=== PATIENT | male | born 1945 | race Caucasian/White ===

== ENCOUNTER 2016-09-18 18:02 | Inpatient (IN) ==
[2016-09-18] MEDS ORDERED: NS FLUSH BAG 500ml IV PRN (18:57)
--- NOTE | 2016-09-18 19:06 | Emergency Department Report ---
General Adult HPI - General Chief complaint: Psychiatric Symptoms Stated complaint: Generations Eval Time Seen by Provider: 09/18/16 18:27 Source: family () Mode of arrival: ambulatory Limitations: altered mental status - History of Present Illness HPI narrative: Patient is brought to the emergency department by his for evaluation after onset of increased confusion and bizarre behavior the past couple of days. Patient resides with his at home. He was recently dx with a UTI earlier today by his PCP , Dr Nieves, and antibiotics were called into his pharmacy. Patient self caths due to hx of prostate cancer that has left him with the inability to fully empty his bladder and takes bactrim prophylactically. Patients reports that patients behavior has become very bizarre the past 24 -36 hours with such behavior as deciding to put them on a diet by taking much of the food in the house and putting it in the garbage disposal. Patient also made attempts to walk out of the house in the middle of the night last night. Although patient has baseline dementia/alzhiemers, these recent behaviors are much more extreme than his baseline. Patient has also not been sleeping at night. Patient has no nausea or vomiting or diarrhea. No fevers or chills. Will do medical screening on patient and treat accordingly. If no evidence of sepsis, will see if patient will benefit from a Generations screening. 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 Patient is confused with behavior changes, however has not demonstrated any aggressive behavior or behavior of self harm. MD complaint: increased confusion /bizarre behaviors Onset (ago): hour(s) Associated symptoms: confusion (worsening ) - Related Data Home Medications Medication Instructions Recorded Confirmed Acetaminophen 500 mg PO Q4H PRN #0 09/07/15 09/18/16 Amlodipine Besylate 7.5 mg PO DAILY #0 09/07/15 09/18/16 Ibuprofen [Advil] 200 mg PO Q4H PRN #0 09/07/15 09/18/16 Metoprolol Tartrate 25 mg PO BID #0 09/07/15 09/18/16 Silodosin [Rapaflo] 8 mg PO WS #0 09/07/15 09/18/16 Escitalopram [Lexapro] 10 mg PO HS 09/18/16 09/18/16 Lisinopril [Prinivil] 20 mg PO DAILY 09/18/16 09/18/16 Melatonin [Melatonin] 10 mg PO HS 09/18/16 09/18/16 Memantine HCl/Donepezil HCl 1 cap PO QAM 09/18/16 09/18/16 [Namzaric 28 mg-10 mg Capsule] Nitrofurantoin Monohyd/M-Cryst 100 mg PO BID 09/18/16 09/18/16 [Macrobid 100 mg Capsule] Sulfamethox/Tmp [Bactrim Ds] 1 tab PO WS 09/18/16 09/18/16 Allergies Allergy/AdvReac Type Severity Reaction Status Date / Time No Known Allergies Allergy Verified 09/18/16 19:23 Review of Systems Limitations: ROS unobtainable due to patient's medical condition Constitutional: Reports: chills PFSH Patient Stated Medical History Alzheimer's Disease Yes Dementia Yes Other Cardiology Yes: ANUERESYM X3 Hx Benign Prostatic Yes Hyperplasia - Social History Smoking status: Never smoker Housing: house Household members: spouse Physical Exam - Limitations Limitations: altered mental status - General General appearance: alert - Normal Exams: Head:: Normocephalic without trauma Eyes:: Pupils are PERRLA w/ EOMI, No scleral icterus, irritation, or foreign bodies noted Chest/Respirations:: Clear all jamil, with good airflow, and symmetry bilaterally Cardiovascular:: Regular rate and rhythm, Pulses 2+ all extremities, capillary refill, <2 seconds all extremities Abdomen:: Bowel sounds positive, soft, non-tender, non-distended, no hepatosplenomegaly, masses or bruits noted Lymphatic:: No lymphadenopathy, or lymphedema noted Musculoskeletal:: No tenderness, or deformity noted, good range of motion, all extremities Integumentary:: No rashes, hives, or bruising noted, hair and nails, without abnormality - Cardiovascular Cardiovascular exam: Present: systolic murmur Course Vital Signs Temperature 98.7 F 09/18/16 18:13 Pulse Rate 60 09/18/16 18:13 Respiratory Rate 20 09/18/16 18:13 Blood Pressure 161/76 H 09/18/16 18:13 Pulse Oximetry 95 09/18/16 18:13 Temperature 98.7 F 09/18/16 18:13 Pulse Rate 52 L 09/18/16 20:14 Respiratory Rate 18 08/09/17 20:14 Blood Pressure 141/72 H 09/18/16 20:14 Pulse Oximetry 98 09/18/16 20:14 Medical Decision Making - MDM Narrative Medical decision making narrative: Patient has increased confusion and behavior changes attributed to probable UTI ; also has slightly worsened hyponatremia. With these clinical findings, patient may benefit from observation on medical unit for IV antibiotics and rehydration prior to generation screening. Telehospitalist, Dr Mackay, accepts patient to the hospitalist service. - Differential Diagnosis sepsis, uti, electrolyte imbalance, CVA, encephalopathy, drug reaction - Lab Data Result diagrams: 09/18/16 18:17 09/18/16 19:24 Lab Results 09/18/16 09/18/16 09/18/16 Range/Units 18:17 18:54 19:24 WBC 7.0 (4.5-11.0) T/MM3 RBC 4.06 L (4.50-5.90) M/MM3 Hgb 13.1 L (13.5-17.5) GM/DL Hct 38.5 L (41-53) % MCV 94.8 (80-100) UM3 MCH 32.3 (26-34) UUG MCHC 34.0 (31-37) GM/DL RDW Std Deviation 44.2 (36.9-50.2) FL Plt Count 195 (130-400) T/MM3 MPV 9.4 (9.4-12.4) UM3 Immature Gran % (Auto) 0.3 (0.0-0.5) % Neut % (Auto) 79.0 H (33-66) % Lymph % (Auto) 11.6 L (23-45) % [place] % (Auto) 8.1 (0-9.0) % Eos % (Auto) 0.9 (0-4) % Baso % (Auto) 0.1 (0-2) % Neut # 5.6 (1.8-7.7) T/MM3 Lymph # 0.8 L (1-4.8) T/MM3 [place] # 0.6 (0-0.8) T/MM3 Eos # 0.1 (0-0.5) T/MM3 Baso # 0.0 (0-0.2) T/MM3 Abs Immat Gran (auto) 0.02 (0.00-0.03) T/MM3 Turbidity < 20 (0-20) Sodium 128 L (134-144) MEQ/L Potassium 4.7 (3.6-5) MEQ/L Chloride 95 L (98-107) MEQ/L Carbon Dioxide 24 (22-30) MEQ/L Anion Gap 9 (5-15) MEQ/L BUN 19.0 (9-20) MG/DL Creatinine 0.9 (0.8-1.5) MG/DL GFR Calculation 83 BUN/Creatinine Ratio 21 (6-26) RATIO Glucose 104 (75-110) MG/DL Calculated Osmolality 249 L (261-280) MOSM/KG Calcium 8.5 (8.4-10.2) MG/DL Total Bilirubin 0.90 (0.20-1.30) MG/DL Icterus Index < 2 (0-7) AST 62 H (17-59) U/L ALT 55 (21-72) U/L Alkaline Phosphatase 64 (38-126) U/L Total Protein 7.0 (6.3-8.2) G/DL Albumin 4.1 (3.5-5.0) G/DL Globulin 2.9 (2.4-3.6) G/DL Albumin/Globulin Ratio 1.4 (1.1-2.2) RATIO Plasma Lactate 0.9 (0.6-2.2) MMOL/L Specimen Hemolysis < 15 (0-25) Ur Collection Type Urine, catheter Urine Color Red (YELLOW) Urine Clarity Sl cloudy Urine pH 6.0 (5.0-8.0) Ur Specific [place] 1.015 (1.015-1.025) Urine Protein 2+ A (NEGATIVE) Urine Glucose (UA) Negative (NEGATIVE) Urine Ketones Negative (NEGATIVE) Urine Occult Blood 3+ A (NEGATIVE) Urine Nitrate Negative (NEGATIVE) Urine Bilirubin Negative (NEGATIVE) Urine Urobilinogen 0.2 (NORMAL) EU/DL Ur Leukocyte Esterase 3+ (NEGATIVE) Urine RBC 30-50 H (0-3) /HPF Urine WBC 50-200 H (0-5) /HPF Urine Bacteria 2+ H (NEGATIVE) Ur Culture Indicated? Cult reflexed &setup Disposition Clinical Impression: UTI (urinary tract infection), Hyponatremia, Dementia Disposition: 02 To OBS NM Prescriptions: No Action Metoprolol Tartrate 25 mg PO BID #0 Memantine HCl/Donepezil HCl [Namzaric 28 mg-10 mg Capsule] 1 cap PO QAM Nitrofurantoin Monohyd/M-Cryst [Macrobid 100 mg Capsule] 100 mg PO BID Lisinopril [Prinivil] 20 mg PO DAILY Melatonin [Melatonin] 10 mg PO HS Amlodipine Besylate 7.5 mg PO DAILY #0 Silodosin [Rapaflo] 8 mg PO WS #0 Acetaminophen 500 mg PO Q4H PRN #0 PRN Reason: PAIN Ibuprofen [Advil] 200 mg PO Q4H PRN #0 PRN Reason: PAIN Escitalopram [Lexapro] 10 mg PO HS Sulfamethox/Tmp [Bactrim Ds] 1 tab PO WS Referrals: Tono Nieves MD [Family Provider] - Time of Disposition: 20:31 - Seen By: tracy
[2016-09-18] MEDS ORDERED: SALINE FLUSH 10ml SYRINGE IVF PRN (19:10)
[2016-09-18] MEDS: SALINE FLUSH 10ml SYRINGE IVF PRN (19:27)
[2016-09-18] MEDS ORDERED: CEFTRIAXONE (ER USE ONLY) 1 GM in NS 100 ML IV ONE (19:33)
[2016-09-18] MEDS ORDERED: ACETAMINOPHEN 325 MG TABLET PO PRN (20:34)
[2016-09-18] MEDS ORDERED: Bisacodyl EC TAB 5 MG TABLET PO PRN (20:34)
[2016-09-18] MEDS ORDERED: ONDANSETRON 4 MG/2 ML INJECTION IVP PRN (20:34)
[2016-09-18] MEDS ORDERED: IBUPROFEN 200 MG TABLET PO PRN (20:55)
[2016-09-18] MEDS ORDERED: ACETAMINOPHEN 500 MG TABLET PO PRN (20:55)
[2016-09-18 21:04] VITALS: BMI 29.7
--- NOTE | 2016-09-18 21:35 | History & Physical Report ---
<Brock Mackay I - Last Filed: 09/18/16 21:31> History of Present Illness Date: 09/18/16 Chief complaint: Altered Mental Status HPI: Mr. Hernandez is a pleasant [id number] male patient of Dr. Rick. He has a baseline of Alzheimer's dementia, but is normally fairly high functioning. His is his primary caregiver, and brought him to the emergency department this evening with the complaint of increased confusion and strange behaviors. For example, he has had insomnia and tried to leave the house in the middle of the night last night. He apparently took a significant amount of the food in the house and placed it on the garbage disposal, stating that they were going to start a new diet. He had labs done with his primary care doctor today, was apparently diagnosed with a urinary tract infection, antibiotics were called out, but he has not received any of those yet as his behaviors were becoming more bizarre and concerning to his so she brought him to the emergency department. Here, he was discovered indeed to have a urinary tract infection. Since April , he has been doing intermittent self catheterization for urine retention felt due to BPH. This is his first UTI since beginning this regimen, but he did have a "serious" UTI last November as well. He was given 1 g of intravenous Rocephin in the emergency department, 500 mL of normal saline, and he is placed in observation status for further evaluation and management. The primary doctor and the patient's have requested a screen for the generations unit as well. Review of Systems - Constitutional Constitutional: Absent: chills, fatigue, fever(s) - EENMT Eyes: Absent: change in vision Ears: Absent: ear discharge Balance: Absent: vertigo - Cardiovascular Cardiovascular: Absent: chest pain, palpitations, syncope, dyspnea on exertion - Respiratory Respiratory: Absent: cough, dyspnea - Gastrointestinal Gastrointestinal: Present: change in bowel habits ( Over the last several months, he has had intermittent unannounced episodes of emesis. No blood, no apparent other evidence of illness when these occur. He has not vomited in about 1 week.). Absent: abdominal pain - Genitourinary Genitourinary: Present: as per HPI - Neurological Neurological: Present: as per HPI, confusion, memory loss ( Chronic with a mix of Alzheimer's and vascular type dementia) - Psychiatric Psychiatric: Present: as per HPI, abnormal sleep pattern, behavioral changes PFSH Patient Stated Medical History Alzheimer's Disease Yes Dementia Yes Other Cardiology Yes: AAA ANUERESYM Hx Benign Prostatic Yes Hyperplasia Other Yes: PROSTATE CA Shingles Yes chronic hyponatremia, mild recurrent urinary tract infections Family History: noncontributory - Social History Smoking status: Never smoker (he is a lifetime non-smoker.) Alcohol intake frequency: does not drink Housing: house Household members: spouse Current occupational status: unemployed Medications Home Medications Medication Instructions Recorded Confirmed Type Acetaminophen 500 mg PO Q4H PRN #0 09/07/15 09/18/16 History Amlodipine Besylate 7.5 mg PO DAILY #0 09/07/15 09/18/16 History Ibuprofen [Advil] 200 mg PO Q4H PRN #0 09/07/15 09/18/16 History Metoprolol Tartrate 25 mg PO BID #0 09/07/15 09/18/16 History Silodosin [Rapaflo] 8 mg PO WS #0 09/07/15 09/18/16 History Escitalopram [Lexapro] 10 mg PO HS 09/18/16 09/18/16 History Lisinopril [Prinivil] 20 mg PO DAILY 09/18/16 09/18/16 History Melatonin [Melatonin] 10 mg PO HS 09/18/16 09/18/16 History Memantine HCl/Donepezil HCl 1 cap PO QAM 09/18/16 09/18/16 History [Namzaric 28 mg-10 mg Capsule] Nitrofurantoin Monohyd/M-Cryst 100 mg PO BID 09/18/16 09/18/16 History [Macrobid 100 mg Capsule] Sulfamethox/Tmp [Bactrim Ds] 1 tab PO WS 09/18/16 09/18/16 History Allergies Allergy/AdvReac Type Severity Reaction Status Date / Time No Known Allergies Allergy Verified 09/18/16 19:23 Exam Vital Signs: Temperature 96.8 F 09/18/16 20:58 Pulse Rate 56 L 09/18/16 20:58 Respiratory Rate 20 09/18/16 20:58 Blood Pressure 174/79 H 09/18/16 20:58 Pulse Oximetry 97 09/18/16 20:58 Oxygen Delivery Method Room Air Height: 5 ft 6 in Weight: 83.4 kg Body Mass Index: 29.7 - Constitutional Present: no acute distress Comments: Pleasant not oriented his does all the talking - Routine HEENT Exam Head: Present: normocephalic, atraumatic Eye: Present: EOMI, PERRL - Routine Neck Exam Present: supple, full ROM - Routine Chest/Breast/Axilla Exam Chest wall: Absent: tenderness - Routine Respiratory Exam Present: CTA bilaterally. Absent: accessory muscle use, dyspnea - Routine Cardiovascular Exam Present: RRR, no murmur - Routine Abdominal Exam Present: soft, normoactive bowel sounds, non tender, distended ( minimally). Absent: tenderness - Routine Extremities Exam Absent: cyanosis, clubbing, edema - Routine Neurological Exam Present: alert, CN II-XII intact, moving all extremities. Absent: oriented X3 - Routine Psychiatric Exam Present: normal affect ( calm, flat affect follows simple commands) - Additional findings Additional findings: physical examination performed using telemedicine equipment with the assistance of the bedside nurse. The patient's was present throughout the history and examination. Results - Labs CBC & Chem 7: 09/18/16 18:17 09/18/16 19:24 Assessment and Plan (1) UTI (urinary tract infection) Problem details: Complicated by his history of self straight catheterization for benign prostatic hypertrophy. He has been given empiric intravenous Rocephin, which we will continue and follow his urine culture. He does not appear septic at this time. Current visit: Yes Status: Acute (2) Hyponatremia Problem details: This is chronic, and very little departure from his baseline. He had stopped hydrochlorothiazide in the past, apparently. We will continue normal saline at 100 mils per hour and recheck in the morning. Current visit: Yes Status: Acute (3) Dementia Problem details: Toxic encephalopathy on top of chronic dementia due to the above urinary tract infection. He is not agitated at this time. We will maximize his environmental cues as possible. Treat the underlying infection. A consult has been placed to the generations unit for elucidation of the most appropriate disposition. Current visit: Yes Status: Acute 09/18/16 21:43 Will provide further symptomatic supportive and diagnostic cares as the current workup, or changes in his clinical scenario indicated. Plan of care was discussed with his at the bedside at the time of my evaluation and she expressed understanding and desired to proceed. We will respect their desire for him to remain DO NOT RESUSCITATE status. DVT Prophylaxis: SCD's Sepsis Assessment - Evaluation Confirmed Suspected Infection: Yes SIRS Criteria: acute mental status change Severe Sepsis: none seen Hospital Course Summary Disclaimer: The visit summary below is not to be considered part of the above Progress Note. <SparksTamy peace - Last Filed: 09/19/16 12:07> History of Present Illness Date: 09/19/16 [facility] Patient Stated Medical History Alzheimer's Disease Yes Dementia Yes Other Cardiology Yes: AAA ANUERESYM Hx Benign Prostatic Yes Hyperplasia Other Yes: PROSTATE CA Shingles Yes Exam Vital Signs: Temperature 97.0 F 09/19/16 07:35 Pulse Rate 56 L 09/19/16 07:35 Respiratory Rate 18 09/19/16 07:35 Blood Pressure 159/85 H 09/19/16 07:35 Pulse Oximetry 97 09/19/16 07:35 Oxygen Delivery Method Room Air Height: 1.68 m Weight: 81.9 kg Results - Labs CBC & Chem 7: 09/19/16 04:53 09/19/16 04:53 Assessment and Plan (1) UTI (urinary tract infection) Problem details: Complicated by his history of self straight catheterization for benign prostatic hypertrophy. He has been given empiric intravenous Rocephin, which we will continue and follow his urine culture. He does not appear septic at this time. Current visit: Yes Status: Acute (2) Hyponatremia Problem details: This is chronic, and very little departure from his baseline. He had stopped hydrochlorothiazide in the past, apparently. We will continue normal saline at 100 mils per hour and recheck in the morning. Current visit: Yes Status: Acute (3) Dementia Problem details: Toxic encephalopathy on top of chronic dementia due to the above urinary tract infection. He is not agitated at this time. We will maximize his environmental cues as possible. Treat the underlying infection. A consult has been placed to the generations unit for elucidation of the most appropriate disposition. Current visit: Yes Status: Acute Assessment and Plan: 09/19/2016-Dr. Sparks I have reviewed the H&P above dictated by tele-medicine physician Dr. Brock Mackay. I agree with dictation above. Please see my additions below. Chief complaint is altered mental status History of present illness: History is obtained mostly from the patient's . The patient has per her report 2 kinds of dementia both Alzheimer's type dementia and vascular dementia. She states that he was in his usual state of health until last night when he started having bizarre behaviors and seemed much more confused. She states that this was typical for him with urinary tract infections. He was seen by his primary care physician yesterday and found to have UTI and plan was for initiation of antibiotics, but he was too confused to start them and was taken to the emergency room instead. In the ER he was found to have 50-200 white cells on urinalysis with 2+ bacteria. He was started on Rocephin and Macrodantin. He has a history of urinary retention and sees Dr. Fisher urologist via [place]. He has been straight cathetering himself 4 times a day since April of this year because of urinary retention. He was also on Bactrim DS once a day since April to prevent UTI. On admission the patient also had hyponatremia and was started on normal saline. Today, the patient's states that he is less confused than yesterday but is not back to his baseline. He denies any headache, chest pain or abdominal pain. He denies any pain anywhere. He denies feeling short of breath or having nausea. He ate a good breakfast. He was able to answer some of my questions about symptoms but invariably would look at his after I asked him a question. He has had intermittent vomiting at home of uncertain cause. Reportedly he would have sudden onset of vomiting up to once a day but sometimes less than once a week. Before and after these episodes he would feel fine and did not have any specific complaints per his . Otherwise he has been in his normal state of health. Per his , he has not had any falls and has normal gait. He does not require a walker for ambulation. 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 He follows with a doctor in [place] regarding his aneurysms and they are watching them with CAT scan every 4-6 months. The patient also has an enlarged heart and a regurgitant valve per his . 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 He does not have a diagnosis of heart failure and is not on diuretics. He also has BPH, chronic hyponatremia, and frequent urinary tract infections. He also has urinary retention requiring straight catheter 4 times a day. His urologist had recommended chronic indwelling Jean but the patient and his prefer straight catheter 4 times a day and when necessary. Family history is significant for multiple family members on his mother's side including his mother having dementia No known drug allergies Medications are reviewed. He was not taking Macrobid at home. Social history: The patient is a lifelong nonsmoker and nondrinker. 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 No focal neurologic deficits on exam. HEENT reveals sclerae to be anicteric and pupils are equal round and reactive. Oropharynx is moist. Neck is supple. Chest is clear to auscultation. Cardiovascular reveals a regular rate and rhythm. Abdomen is soft and nontender. Extremities are free of edema. Skin is warm and dry and without rashes. Lab this morning shows sodium is 1:30 up from 128 yesterday. The remainder of the basic metabolic profile is essentially normal. White count is 4.7 down from 7. Hemoglobin and platelets are normal. Neutrophils are 71%. Urine culture is pending. Impression Encephalopathy, likely secondary to urinary tract infection and hyponatremia Urinary tract infection-culture is pending Hyponatremia-improving Alzheimer's type dementia and vascular dementia-with acute encephalopathy as above Urinary retention secondary to BPH-requiring scheduled straight catheterization Aneurysms of the aortic arch and abdominal aorta Plan Continue Rocephin and Macrobid. Discontinue Bactrim. Await urine culture. Discussed with urologist when culture is back. Will change status to inpatient due to continued encephalopathy which is likely multifocal factorial with urinary tract infection and hyponatremia. Hopefully, acute confusion will resolve with treatment of UTI and hyponatremia. DC IV fluids when current bag is empty. Recheck basic metabolic profile tomorrow. Continue usual home medications for treatment of hypertension Walk-in halls 3 times a day with assist to prevent weakness. Hospital Course Summary Disclaimer: The visit summary below is not to be considered part of the above Progress Note.
[2016-09-18] MEDS: NS 1,000 ML IV SCH (21:50)
[2016-09-18] MEDS: CEFTRIAXONE 1 G in NS 100 ML IV SCH (21:59)
[2016-09-18] MEDS ORDERED: MELATONIN 5 MG TABLET PO SCH (22:00)
[2016-09-18] MEDS ORDERED: FALL RISK - PHARMACY CONSULT MC PRN (22:03)
[2016-09-18] MEDS: ESCITALOPRAM 10 MG TABLET PO SCH (22:45)
[2016-09-18] MEDS: NITROFURANTOIN (MACROBID) 100 MG CAPSULE PO SCH (22:45)
[2016-09-19] MEDS: NS 1,000 ML IV SCH (07:12)
--- NOTE | 2016-09-19 09:17 | CT Scan Report ---
Indication: INCREASED CONFUSION PROCEDURE: CT head/brain wo con: Encounter: Initial Comparison: None Findings: There is mild prominence of the ventricles and sulci compatible with cortical atrophy. There are fairly extensive periventricular and subcortical white matter changes most prominent in the basal ganglia in the anterior limb of the internal capsule bilaterally. There is no mass, mass effect, or midline shift. No evidence for intracranial hemorrhage. No intra or extra-axial fluid collections. No evidence for depressed skull fracture. The included portions of the sinuses are clear. IMPRESSION: Mild cortical atrophy with periventricular white matter disease. No evidence for acute cortical infarct, intracranial hemorrhage, or mass. Preliminary report was provided by Asher harry .
[2016-09-19] MEDS: POM METOPROLOL TARTRATE 25mg TABLET PO SCH ×2 (09:21→17:28)
[2016-09-19] MEDS: NAMZARIC PO SCH (09:22)
[2016-09-19] MEDS: LISINOPRIL 20 MG TABLET PO SCH (09:23)
[2016-09-19] MEDS: NITROFURANTOIN (MACROBID) 100 MG CAPSULE PO SCH ×2 (09:24→21:01)
[2016-09-19] MEDS: AMLODIPINE 5 MG TABLET PO SCH (09:24)
[2016-09-19] MEDS: RAPAFLO 8 MG PO SCH (17:29)
[2016-09-19] MEDS: ESCITALOPRAM 10 MG TABLET PO SCH (21:01)
[2016-09-19] MEDS: MELATONIN 10 MG PO SCH (21:02)
[2016-09-19] MEDS: CEFTRIAXONE 1 G in NS 100 ML IV SCH (23:01)
[2016-09-20] MEDS: NAMZARIC PO SCH (10:12)
[2016-09-20] MEDS: POM METOPROLOL TARTRATE 25mg TABLET PO SCH ×2 (10:12→17:01)
[2016-09-20] MEDS: NITROFURANTOIN (MACROBID) 100 MG CAPSULE PO SCH ×2 (10:12→20:46)
[2016-09-20] MEDS: LISINOPRIL 20 MG TABLET PO SCH (10:13)
[2016-09-20] MEDS: AMLODIPINE 5 MG TABLET PO SCH (10:13)
[2016-09-20] MEDS: NS 1,000 ML IV SCH (10:52)
[2016-09-20] MEDS: SALINE FLUSH 10ml SYRINGE IVF PRN (16:10)
[2016-09-20] MEDS: RAPAFLO 8 MG PO SCH (17:01)
--- NOTE | 2016-09-20 18:18 | Progress Note ---
Subjective: The patient was seen today accompanied by his . The patient has significant dementia with acute encephalopathy as the reason for his admission. His states that he is not back to baseline as far as his confusion is concerned. Otherwise, she states he appears to be doing well. He is eating and drinking very well. He is up and walking in the halls multiple times a day with assistance. He denies any pain anywhere. He appears to be voiding well. Anytime he is asked a question he attempts to answer but also looks at his to help confirm his answer. The patient did complain of muscle spasms and cramps in his legs last night. He and his think the SCDs made it worse. Objective Vital signs: Temperature 97.0 F 09/20/16 15:42 Pulse Rate 61 09/20/16 15:42 Respiratory Rate 16 09/20/16 15:42 Blood Pressure 143/71 H 09/20/16 15:42 Pulse Oximetry 96 09/20/16 15:42 Oxygen Delivery Method Room Air Weight: 83.1 kg Comments: GEN-alert, pleasantly confused, no acute distress HEENT-were anicteric, pupils are equal, oropharynx is moist NECK-supple CV-regular rate and rhythm CHEST-clear to auscultation bilaterally ABD-soft, nontender, nondistended with positive bowel sounds -no Jean EXT-no edema NEURO-no focal deficits SKIN-warm and dry and without rashes Results - Labs CBC & Chem 7: 09/19/16 04:53 09/20/16 04:25 Labs: Urine culture from [facility] outpatient clinic revealed enterococcus faecalis sensitive to all antibiotics tested including nitrofurantoin which was started on the evening of admission Urine culture here at [facility] preliminarily shows greater than 100 ,000 colony-forming units of gram-positive cocci. The medical librarian stated it was an enterococcus species but further testing was pending Assessment and Plan (1) UTI (urinary tract infection) Problem details: Complicated by his history of self straight catheterization for benign prostatic hypertrophy. He has been given empiric intravenous Rocephin, which we will continue and follow his urine culture. He does not appear septic at this time. Current visit: Yes Status: Acute (2) Hyponatremia Problem details: This is chronic, and very little departure from his baseline. He had stopped hydrochlorothiazide in the past, apparently. We will continue normal saline at 100 mils per hour and recheck in the morning. Current visit: Yes Status: Acute (3) Dementia Problem details: Toxic encephalopathy on top of chronic dementia due to the above urinary tract infection. He is not agitated at this time. We will maximize his environmental cues as possible. Treat the underlying infection. A consult has been placed to the generations unit for elucidation of the most appropriate disposition. Current visit: Yes Status: Acute 09/18/16 21:43 Will provide further symptomatic supportive and diagnostic cares as the current workup, or changes in his clinical scenario indicated. Plan of care was discussed with his at the bedside at the time of my evaluation and she expressed understanding and desired to proceed. We will respect their desire for him to remain DO NOT RESUSCITATE status. Assessment and Plan: 09/20/2016-Dr. Sparks Impression Encephalopathy, likely secondary to urinary tract infection and possibly to some extent from his hyponatremia Urinary tract infection-Enterococcus faecalis with sensitivity to nitrofurantoin. Nitrofurantoin and Rocephin were started on the evening of admission Hyponatremia-129 today. 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 Plan Continue nitrofurantoin. Discontinue Rocephin If the patient's mental status is back to baseline he could be discharged tomorrow. If not, consider generations screen for possible admission to the generations unit Recheck basic metabolic profile tomorrow. Continue usual home medications for treatment of hypertension Walk-in halls 3 times a day with assist to prevent weakness. Discontinue SCDs. The patient is walking frequently in the halls and should not need them for DVT prophylaxis at this time especially since they seem to be causing more muscle cramping in his legs. Sepsis Assessment - Evaluation Sepsis screening result: No Definite Risk Hospital Course Summary Disclaimer: The visit summary below is not to be considered part of the above Progress Note.
[2016-09-20] MEDS ORDERED: FALL RISK - PHARMACY CONSULT MC PRN (20:03)
[2016-09-20] MEDS: ESCITALOPRAM 10 MG TABLET PO SCH ×2 (20:46→21:10)
[2016-09-20] MEDS: MELATONIN 10 MG PO SCH ×2 (20:46→21:11)
[2016-09-21] MEDS: FUROSEMIDE 20 MG TABLET PO SCH ×2 (09:57→10:12)
[2016-09-21] MEDS: NITROFURANTOIN (MACROBID) 100 MG CAPSULE PO SCH ×2 (09:58→21:07)
[2016-09-21] MEDS: NAMZARIC PO SCH (09:59)
[2016-09-21] MEDS: SALINE FLUSH 10ml SYRINGE IVF PRN (09:59)
[2016-09-21] MEDS: LISINOPRIL 20 MG TABLET PO SCH (10:12)
[2016-09-21] MEDS: AMLODIPINE 5 MG TABLET PO SCH (10:13)
--- NOTE | 2016-09-21 10:47 | Progress Note ---
Subjective: Feeling better today, discussed sodium levels and this has been a chronic problem for him. Frequently asks the same questions over and over again but responds appropriately to questions I ask him. Good appetite, denies pain or dyspnea. Objective Vital signs: Temperature 97.0 F 09/21/16 07:40 Pulse Rate 57 L 09/21/16 07:40 Respiratory Rate 16 09/21/16 07:40 Blood Pressure 150/77 H 09/21/16 07:40 Pulse Oximetry 97 09/21/16 07:40 Oxygen Delivery Method Room Air Weight: 84.2 kg - Constitutional Present: no acute distress, well nourished, well developed - Routine HEENT Exam Head: Present: normocephalic, atraumatic Eye: Present: EOMI, PERRL. Absent: conjunctival icterus ENT: Present: mucous membranes moist, oropharynx clear - Routine Respiratory Exam Present: CTA bilaterally. Absent: accessory muscle use, decreased breath sounds - Routine Cardiovascular Exam Present: bradycardia - Routine Abdominal Exam Present: soft. Absent: non distended, non tender - Routine Extremities Exam Absent: edema Comments: SCDs intact - Routine Skin Exam Present: dry, warm. Absent: rash - Routine Neurological Exam Present: alert, vision grossly intact, hearing grossly intact Results - Labs CBC & Chem 7: 09/19/16 04:53 09/21/16 04:58 Assessment and Plan DVT Prophylaxis: SCD's Assessment and Plan: 09/20/2016-Dr. Sparks Impression Encephalopathy, likely secondary to urinary tract infection and possibly to some extent from his hyponatremia Urinary tract infection-Enterococcus faecalis with sensitivity to nitrofurantoin. Nitrofurantoin and Rocephin were started on the evening of admission, now on the nitrofurantoin as a single agent, monitor. 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 Mackay of nephrology). 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 Plan Continue nitrofurantoin for UTI. Will start fluid restriction to 1.5L and low dose furosemide 20 mg daily to enhance free water clearance. If Na improving in AM we can consider DC; if not will need further w/u with urine Na/OSM and evaluation of thyroid and adrenal axis. Recheck renal panel in AM. Continue usual home medications for treatment of hypertension. Walk-in halls 3 times a day with assist to prevent weakness. Sepsis Assessment - Evaluation Sepsis screening result: No Definite Risk Hospital Course Summary Disclaimer: The visit summary below is not to be considered part of the above Progress Note. Hospital Course: 09/21/16--[place] Impression Encephalopathy, likely secondary to urinary tract infection and possibly to some extent from his hyponatremia Urinary tract infection-Enterococcus faecalis with sensitivity to nitrofurantoin. Nitrofurantoin and Rocephin were started on the evening of admission, now on the nitrofurantoin as a single agent, monitor. 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 Mackay of nephrology). 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 Plan Continue nitrofurantoin for UTI. Will start fluid restriction to 1.5L and low dose furosemide 20 mg daily to enhance free water clearance. If Na improving in AM we can consider DC; if not will need further w/u with urine Na/OSM and evaluation of thyroid and adrenal axis. Recheck renal panel in AM. Continue usual home medications for treatment of hypertension. Walk-in halls 3 times a day with assist to prevent weakness.
[2016-09-21] MEDS: RAPAFLO 8 MG PO SCH (16:42)
[2016-09-21] MEDS: ESCITALOPRAM 10 MG TABLET PO SCH (21:07)
[2016-09-21] MEDS: MELATONIN 10 MG PO SCH (21:07)
[2016-09-22] MEDS: FUROSEMIDE 20 MG TABLET PO SCH (09:59)
[2016-09-22] MEDS: NITROFURANTOIN (MACROBID) 100 MG CAPSULE PO SCH ×2 (09:59→20:31)
[2016-09-22] MEDS: LISINOPRIL 20 MG TABLET PO SCH (10:01)
[2016-09-22] MEDS: AMLODIPINE 5 MG TABLET PO SCH (10:03)
[2016-09-22] MEDS: NAMZARIC PO SCH (10:05)
--- NOTE | 2016-09-22 11:53 | Progress Note ---
Subjective: No complaints today, difficult to redirect conversation. He tells me he wrote the current issue of the [employer] he is reading; he translated it from the former version and would like to read it to me today. He denies today that he sees Dr. Mackay (nephrology) although yesterday he said that he did. He was admitted by a different Dr. Mackay but does not recall that. He denies weakness, dizziness. Eating okay. He says his is in [place] for the eclipse but I believe that is supposed to be on the . Objective Vital signs: Temperature 96.4 F L 09/21/16 23:00 Pulse Rate 67 09/21/16 23:00 Respiratory Rate 16 09/21/16 23:00 Blood Pressure 161/72 H 09/21/16 23:00 Pulse Oximetry 99 09/21/16 23:00 Oxygen Delivery Method Room Air Weight: 84.2 kg - Constitutional Present: no acute distress, well nourished, well developed - Routine HEENT Exam Head: Present: normocephalic, atraumatic Eye: Present: EOMI, PERRL. Absent: conjunctival icterus ENT: Present: mucous membranes moist, oropharynx clear - Routine Respiratory Exam Present: CTA bilaterally. Absent: accessory muscle use, dyspnea - Routine Cardiovascular Exam Present: RRR - Routine Abdominal Exam Present: soft, non distended, non tender - Routine Extremities Exam Present: no edema, full ROM. Absent: joint swelling - Routine Skin Exam Present: dry. Absent: rash - Routine Neurological Exam Present: alert, vision grossly intact, hearing grossly intact, normal speech - Routine Psychiatric Exam Present: normal affect, cooperative. Absent: good insight Results - Labs CBC & Chem 7: 09/19/16 04:53 09/22/16 04:57 Assessment and Plan DVT Prophylaxis: Lovenox Resuscitation Status: Do Not Resuscitate Assessment and Plan: 09/22/16--[place] Impression Encephalopathy, likely secondary to urinary tract infection and possibly to some extent from his hyponatremia, improved some but still confused Urinary tract infection-Enterococcus faecalis with sensitivity to nitrofurantoin. Nitrofurantoin and Rocephin were started on the evening of admission, now on the nitrofurantoin as a single agent, monitor. 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 Continue fluid restriction, will increase to 2L and continue furosemide low dose at 20 mg daily. Recheck renal panel in AM. Will discuss with his if she is here later today to determine if she feels he is at baseline. Still confused for me but has underlying dementia so difficult to assess. Continue usual home medications for treatment of hypertension. Walk-in halls 3 times a day with assist to prevent further weakness. As above, he is improving and it is unclear what his baseline mental status is. Infection issues have cleared. Will discuss with family to determine if DC home tomorrow is a viable plan. Generations screen was also considered if he has ongoing encephalopathy despite treatment of UTI, but if close to baseline would favor DC home. Sepsis Assessment - Evaluation Sepsis screening result: No Definite Risk Hospital Course Summary Disclaimer: The visit summary below is not to be considered part of the above Progress Note. Hospital Course: 09/21/16--[place] Impression Encephalopathy, likely secondary to urinary tract infection and possibly to some extent from his hyponatremia Urinary tract infection-Enterococcus faecalis with sensitivity to nitrofurantoin. Nitrofurantoin and Rocephin were started on the evening of admission, now on the nitrofurantoin as a single agent, monitor. 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 Mackay of nephrology). 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 Plan Continue nitrofurantoin for UTI. Will start fluid restriction to 1.5L and low dose furosemide 20 mg daily to enhance free water clearance. If Na improving in AM we can consider DC; if not will need further w/u with urine Na/OSM and evaluation of thyroid and adrenal axis. Recheck renal panel in AM. Continue usual home medications for treatment of hypertension. Walk-in halls 3 times a day with assist to prevent weakness. 09/22/16--[place] Impression Encephalopathy, likely secondary to urinary tract infection and possibly to some extent from his hyponatremia, improved some but still confused Urinary tract infection-Enterococcus faecalis with sensitivity to nitrofurantoin. Nitrofurantoin and Rocephin were started on the evening of admission, now on the nitrofurantoin as a single agent, monitor. 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 Continue fluid restriction, will increase to 2L and continue furosemide low dose at 20 mg daily. Recheck renal panel in AM. Will discuss with his if she is here later today to determine if she feels he is at baseline. Still confused for me but has underlying dementia so difficult to assess. Continue usual home medications for treatment of hypertension. Walk-in halls 3 times a day with assist to prevent further weakness.
[2016-09-22 12:04] VITALS: RESP 18
[2016-09-22] MEDS: RAPAFLO 8 MG PO SCH (17:35)
[2016-09-22] MEDS: ESCITALOPRAM 10 MG TABLET PO SCH (20:31)
[2016-09-22] MEDS: MELATONIN 10 MG PO SCH (20:31)
[2016-09-23] MEDS ORDERED: FALL RISK - PHARMACY CONSULT MC PRN (00:28)
[2016-09-23] MEDS ORDERED: HALOPERIDOL 1 MG TABLET PO ONE (03:52)
[2016-09-23] MEDS: MELATONIN 10 MG PO SCH (03:58)
[2016-09-23] MEDS: ESCITALOPRAM 10 MG TABLET PO SCH (03:58)
[2016-09-23] MEDS: FUROSEMIDE 20 MG TABLET PO SCH (08:34)
[2016-09-23] MEDS: NITROFURANTOIN (MACROBID) 100 MG CAPSULE PO SCH (08:34)
[2016-09-23] MEDS: AMLODIPINE 5 MG TABLET PO SCH (08:35)
[2016-09-23] MEDS: LISINOPRIL 20 MG TABLET PO SCH (08:35)
[2016-09-23] MEDS: NAMZARIC PO SCH (08:37)
--- NOTE | 2016-09-23 14:36 | Progress Note ---
Subjective: F/U: UTI, hyponatremia Medically, feeling okay today. Breathing well-not SOA or congested. No pain with breathing. No chest pain. Eating well. No ab pain. Sodium with improvement. No evidence of sepsis. Mentation still not to baseline - restless at times. Impaired safety awareness. Objective Vital signs: Temperature 96.6 F L 09/23/16 07:25 Pulse Rate 69 09/23/16 07:25 Respiratory Rate 18 09/23/16 07:25 Blood Pressure 140/73 H 09/23/16 07:25 Pulse Oximetry 98 09/23/16 07:25 Oxygen Delivery Method Room Air Weight: 81.5 kg - Constitutional Present: no acute distress, well nourished, well developed - Routine HEENT Exam Head: Present: normocephalic, atraumatic Eye: Present: EOMI, PERRL ENT: Present: mucous membranes moist - Routine Respiratory Exam Present: CTA bilaterally. Absent: respiratory distress, rhonchi, wheezes, crackles - Routine Cardiovascular Exam Present: RRR - Routine Abdominal Exam Present: soft, normoactive bowel sounds, non distended, non tender - Routine Extremities Exam Present: no edema, pulses intact. Absent: cyanosis, clubbing - Routine Musculoskeletal Exam Musculoskeletal: Present: no clubbing or cyanosis, normal strength - Routine Skin Exam Present: intact, warm, normal turgor. Absent: cyanosis, erythema - Routine Neurological Exam Present: alert, CN II-XII intact, vision grossly intact, hearing grossly intact. Absent: motor deficit - Routine Psychiatric Exam Absent: normal thought process, good insight, good judgment Results - Labs CBC & Chem 7: 09/23/16 04:55 09/23/16 04:55 Assessment and Plan (1) UTI (urinary tract infection) Problem details: Complicated by his history of self straight catheterization for benign prostatic hypertrophy. Enterococcus growing. He does not appear septic at this time. Current visit: Yes Status: Acute (2) Hyponatremia Current visit: Yes Status: Chronic (3) Dementia Current visit: Yes Status: Chronic DVT Prophylaxis: SCD's Resuscitation Status: Do Not Resuscitate Assessment and Plan: 09/22/16--[place] Impression Urinary tract infection-Enterococcus faecalis with sensitivity to nitrofurantoin. 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 Sodium much improve to 133. UTI treated with no current evidence of systemic disease present. Behavioral issues remain - not to his usual level of cognition. Need to continue to monitor for worsening behavioral issues due to his dementia. Patient has increased psychomotor agitation and poor judgement & impulsivity making him a safety risk. [facility] did evaluate patient and feel he would benefit from inpatient geropsychiatric treatment. Medically, patient stable for [facility] admission. Will need to continue nitrofurantoin for UTI; anticipate 4 more days of treatment. Continue fluid restriction, will increase to 2L and continue furosemide low dose at 20 mg daily. Volume status and sodium will need to be monitored while on [facility]. Continue with self caths 4x a day. Patient to F/U with Dr Nieves 1 week after discharge from [facility]. See orders for details. Case discussed with GALEN, Heather, and patient's . Time spent with care and discharge greater than 35 minutes. Sepsis Assessment - Evaluation Sepsis screening result: No Definite Risk Hospital Course Summary Disclaimer: The visit summary below is not to be considered part of the above Progress Note. Hospital Course: 09/21/16--[place] Impression Encephalopathy, likely secondary to urinary tract infection and possibly to some extent from his hyponatremia Urinary tract infection-Enterococcus faecalis with sensitivity to nitrofurantoin. Nitrofurantoin and Rocephin were started on the evening of admission, now on the nitrofurantoin as a single agent, monitor. 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 Mackay of nephrology). 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 Plan Continue nitrofurantoin for UTI. Will start fluid restriction to 1.5L and low dose furosemide 20 mg daily to enhance free water clearance. If Na improving in AM we can consider DC; if not will need further w/u with urine Na/OSM and evaluation of thyroid and adrenal axis. Recheck renal panel in AM. Continue usual home medications for treatment of hypertension. Walk-in halls 3 times a day with assist to prevent weakness. 09/22/16--[place] Impression Encephalopathy, likely secondary to urinary tract infection and possibly to some extent from his hyponatremia, improved some but still confused Urinary tract infection-Enterococcus faecalis with sensitivity to nitrofurantoin. Nitrofurantoin and Rocephin were started on the evening of admission, now on the nitrofurantoin as a single agent, monitor. 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 Continue fluid restriction, will increase to 2L and continue furosemide low dose at 20 mg daily. Recheck renal panel in AM. Will discuss with his if she is here later today to determine if she feels he is at baseline. Still confused for me but has underlying dementia so difficult to assess. Continue usual home medications for treatment of hypertension. Walk-in halls 3 times a day with assist to prevent further weakness. 09/23/16 Medical issues have resolved. Sodium much improve to 133. UTI treated with no current evidence of systemic disease present. Behavioral issues remain - not to his usual level of cognition. Need to continue to monitor for worsening behavioral issues due to his dementia. Patient has increased psychomotor agitation and poor judgement & impulsivity making him a safety risk. [facility] did evaluate patient and feel he would benefit from inpatient geropsychiatric treatment. Medically, patient stable for [facility] admission. Will need to continue nitrofurantoin for UTI; anticipate 4 more days of treatment. Continue fluid restriction, will increase to 2L and continue furosemide low dose at 20 mg daily. Volume status and sodium will need to be monitored while on [facility]. Continue with self caths 4x a day. Patient to F/U with Dr Nieves 1 week after discharge from [facility]. See orders for details.
--- NOTE | 2016-09-23 15:00 | Discharge Summary ---
Discharge Information Date of admission: 09/19/16 11:41 Anticipated date of discharge: 09/23/16 Attending Physician: Tamy Sparks MD Primary care physician: Tono Nieves MD Consults: 09/22/16 Generations Screen: Baseline dementia, UTI treated and improved clinically but impulsive, confused, tangential and his cannot care for him at home unless behavioral issues improve. - Discharge Diagnosis Discharge Diagnosis: Urinary tract infection-Enterococcus faecalis with sensitivity to nitrofurantoin. Hyponatremia (POA) 128 at admit, 133 at discharge; suspect an element of SIADH related to meds. Associated conditions and complications: Alzheimer's type dementia and vascular dementia - underlying behavioral disturbances secondary to dementia No medical evidence for encephalopathy. Potential causes for encephalopathy treated and behavioral disturbances remain. 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 Hernandez is a pleasant [id number] male patient of Dr. Rick. He has a baseline of Alzheimer's dementia, but is normally fairly high functioning. His is his primary caregiver, and brought him to the emergency department this evening with the complaint of increased confusion and strange behaviors. For example, he has had insomnia and tried to leave the house in the middle of the night last night. He apparently took a significant amount of the food in the house and placed it on the garbage disposal, stating that they were going to start a new diet. He had labs done with his primary care doctor today, was apparently diagnosed with a urinary tract infection, antibiotics were called out, but he has not received any of those yet as his behaviors were becoming more bizarre and concerning to his so she brought him to the emergency department. Here, he was discovered indeed to have a urinary tract infection. Since April , he has been doing intermittent self catheterization for urine retention felt due to BPH. This is his first UTI since beginning this regimen, but he did have a "serious" UTI last November as well. He was given 1 g of intravenous Rocephin in the emergency department, 500 mL of normal saline, and he is placed in observation status for further evaluation and management. The primary doctor and the patient's have requested a screen for the generations unit as well. For complete details of the H&P refer to that document. Objective Vital signs: Temperature 96.6 F L 09/23/16 07:25 Pulse Rate 69 09/23/16 07:25 Respiratory Rate 18 09/23/16 07:25 Blood Pressure 140/73 H 09/23/16 07:25 Pulse Oximetry 98 09/23/16 07:25 Oxygen Delivery Method Room Air Weight: 81.5 kg Hospital Course This is a general summary of the patient's hospital course. For more details refer to the complete medical record. Hospital course: 09/18-11/26 Initiate Rocephin and Macrobid. Discontinue Bactrim. Await urine culture. Discussed with urologist when culture is back. Will change status to inpatient due to continued encephalopathy which is likely multifocal factorial with urinary tract infection and hyponatremia. Hopefully, acute confusion will resolve with treatment of UTI and hyponatremia. DC IV fluids when current bag is empty. Recheck basic metabolic profile tomorrow. Continue usual home medications for treatment of hypertension Walk-in halls 3 times a day with assist to prevent weakness. 09/20/16 Urine culture growing enterococcus. Continue nitrofurantoin. Discontinue Rocephin. If the patient's mental status is back to baseline he could be discharged tomorrow. If not, consider generations screen for possible admission to the generations unit. Recheck basic metabolic profile tomorrow. Discontinue SCDs. The patient is walking frequently in the halls and should not need them for DVT prophylaxis at this time especially since they seem to be causing more muscle cramping in his legs. 09/21/16--Hayden Continue nitrofurantoin for UTI. Will start fluid restriction to 1.5L and low dose furosemide 20 mg daily to enhance free water clearance. If Na improving in AM we can consider DC; if not will need further w/u with urine Na/OSM and evaluation of thyroid and adrenal axis. Recheck renal panel in AM. 09/22/16--Hayden Continue nitrofurantoin for UTI. Continue fluid restriction, will increase to 2L and continue furosemide low dose at 20 mg daily. Recheck renal panel in AM. Will discuss with his if she is here later today to determine if she feels he is at baseline. Still confused for me but has underlying dementia so difficult to assess. 09/23/16 Medical issues have resolved. Sodium much improve to 133. UTI treated with no current evidence of SIRS or sepsis present. Behavioral issues remain - not to his usual level of cognition. No medical evidence for encephalopathy. Need to continue to monitor for worsening behavioral issues due to his dementia. Patient has increased psychomotor agitation and poor judgement & impulsivity making him a safety risk. [facility] did evaluate patient and feel he would benefit from inpatient geropsychiatric treatment. Medically, patient stable for [facility] admission. Will need to continue nitrofurantoin for UTI; anticipate 4 more days of treatment. Continue fluid restriction, will increase to 2L and continue furosemide low dose at 20 mg daily. Volume status and sodium will need to be monitored while on [facility]. During hospitalization, metoprolol dose decreased to 12.5mg daily due to bradycardia. Will continue to monitor HR and BP on [facility]. Continue with self caths 4x a day. Patient to F/U with Dr Nieves 1 week after discharge from [facility]. See orders for details. Time spent with patient: discharge greater than 30 minutes DVT Prophylaxis: [facility] [place]'s Discharge Plan - Med Rec/Dispo Referrals/Follow Up: Tono Nieves MD [Family Provider] - (1 week after discharge from [facility]. ) [place] Instructions: Urinary Traction Infection in Older Adults (GEN) Prescriptions: New Furosemide [Lasix] 20 mg PO DAILY tablet Metoprolol Tartrate [Lopressor] 12.5 mg PO WB tablet Nitrofurantoin. [Macrobid] 100 mg PO BID #10 capsule Continue Memantine HCl/Donepezil HCl [Namzaric 28 mg-10 mg Capsule] 1 cap PO QAM Lisinopril [Prinivil] 20 mg PO DAILY Melatonin 10 mg PO HS Amlodipine Besylate 7.5 mg PO DAILY #0 Silodosin [Rapaflo] 8 mg PO WS #0 Acetaminophen 500 mg PO Q4H PRN #0 PRN Reason: PAIN Ibuprofen [Advil] 200 mg PO Q4H PRN #0 PRN Reason: PAIN Escitalopram [Lexapro] 10 mg PO HS Discontinued Metoprolol Tartrate 25 mg PO BID #0 Sulfamethox/Tmp [Bactrim Ds] 1 tab PO WS No Action Nitrofurantoin Monohyd/M-Cryst [Macrobid 100 mg Capsule] 100 mg PO BID Discharge Instructions/Outpatient Orders: Final Provider Discharge Instructions Location: Determined By Patient - Disposition 66 To [facility], [place], operated by [facility] - Attestation Attestation Narrative: 09/23/16 15:29 I have independently interviewed and examined patient prior to discharge. See my progress note from today for details. Medically stable for discharge to [facility].
[2016-09-23 15:06] VITALS: BP 148/71; PULSE 59; TEMP 96; O2SAT 97
== END 2016-09-23 16:07 | DRG 689 ==
LOC: ED 18:02 → MED 18:02
PROVIDERS: ADMIT Internal Medicine; ATTEND Internal Medicine

== ENCOUNTER 2016-09-23 16:06 | Inpatient (IN) ==
[2016-09-23 16:53] VITALS: BMI 32.7
[2016-09-23] MEDS ORDERED: FALL RISK - PHARMACY CONSULT MC PRN (17:07)
[2016-09-23] MEDS ORDERED: Bisacodyl EC TAB 5 MG TABLET PO PRN (17:07)
[2016-09-23] MEDS ORDERED: HALOPERIDOL 0.5 MG TABLET PO PRN (17:29)
[2016-09-23] MEDS ORDERED: HALOPERIDOL 5 MG/ML INJECTION IM PRN (17:29)
--- NOTE | 2016-09-23 19:15 | 24 Hour Neuropsychiatic Eval ---
Date of Admission: 09/23/16 16:10 History of Present Illness: HPI: 71 Y/O CM with a hx of Alzheimer's dementia sent from the medical floor where he was treated for a UTI. Pt was having some strange behaviors at home including poor sleep and some agitation. was concerned due to the confusion and wandering behaviors that he would not be safe. On face to face the pt is pleasant but confused. He is oriented x 2. Not sure of the location. His thoughts processes are slowed and he is a poor historian. He denies any S/I. PSYCH ROS: Pt reports his mood is stable. He denies feeling depressed. He does report issues with sleep for some time. He denies S/I or psychosis. reports a hx of Alzheimers but he has been fairly high functioning and continues to drive. PAST PSYCH: Denies PFSH Patient Stated Medical History Alzheimer's Disease Yes Dementia Yes Other Cardiology Yes: AAA ANUERESYM Hx Benign Prostatic Yes Hyperplasia Other Yes: PROSTATE CA Shingles Yes Family History: Denies family hx of mental illness - Social History Smoking status: Never smoker Review of Systems - Genitourinary Genitourinary: Present: difficulty urinating - Psychiatric Psychiatric: Present: abnormal sleep pattern, behavioral changes, mood swings Mental Status Exam Vitals: Last Vital Signs Temp 97.6 F 09/23/16 16:27 Pulse 60 09/23/16 16:27 Resp 18 09/23/16 16:27 BP 136/73 09/23/16 16:27 Pulse Ox 96 09/23/16 16:27 Height: 1.65 m Weight: 89.2 kg - Mental Status Exam Muscle Strength/Tone: Normal Dressing: Casual Grooming: Good Attitude: Cooperative Motor Activity: Retardation Eye Contact: Fair Speech: Slowed Volume: Soft Rhythm: Appropriate Rhythm Orientation: Oriented to person, Oriented to time Mood: Neutral Affect: Relaxed Rate of Thoughts: Delayed Thought Organization: [place] Associations: Intact Abstract Reasoning: Poor abstract reasoning Thought Content: Normal Perception/Psychotic: Perception Normal Language: Naming Impaired Fund of Knowledge: Poor fund of knowledge Memory: Poor-immediate, Poor-recent Suicidal Ideation: None Homicidal Ideation: None Insight: Poor Judgement: Poor Impulse Control: Poor Assessment and Plan (1) Major neurocognitive disorder due to Alzheimer's disease, probable, with behavioral disturbance Current visit: Yes Status: Acute Continue to evaluate and stabilize. Will restart home meds and use Ativan and Haldol PRN. Collateral from . Will treat UTI
[2016-09-23] MEDS: ESCITALOPRAM 10 MG TABLET PO SCH (20:08)
[2016-09-23] MEDS ORDERED: NITROFURANTOIN (MACROBID) 100 MG CAPSULE PO SCH (21:00)
[2016-09-24] MEDS ORDERED: LORazepam INTENSOL 1mg/0.5ml ORAL LIQUID SL PRN (04:00)
[2016-09-24] MEDS: ESCITALOPRAM 10 MG TABLET PO SCH ×2 (04:02→20:50)
[2016-09-24] MEDS: AMLODIPINE 5 MG TABLET PO SCH (07:59)
[2016-09-24] MEDS: FUROSEMIDE 20 MG TABLET PO SCH (07:59)
[2016-09-24] MEDS ORDERED: NITROFURANTOIN (MACROBID) 100 MG CAPSULE PO SCH (08:00)
[2016-09-24] MEDS: LISINOPRIL 20 MG TABLET PO SCH (08:01)
[2016-09-24] MEDS: NAMZARIC PO SCH (08:01)
[2016-09-24] MEDS ORDERED: NON-FORMULARY MEDICATION 1 EACH EACH (Memantine Hcl/Donepezil Hcl [Namzaric 28 Mg-10 Mg Ca PO SCH (09:00)
--- NOTE | 2016-09-24 10:00 | History & Physical Report ---
<Brinda Stallworth V - Last Filed: 09/24/16 09:54> History of Present Illness Date: 09/24/16 Chief complaint: Dementia, UTI HPI: Jae is a very pleasant 71-year-old male who is well known to the hospitalist services as he was admitted on 09/18/16 for altered mentation. At that time he was found to have a urinary tract infection as well as hyponatremia. During his acute stay, he was initiated on Rocephin and Macrobid for antimicrobial coverage. His urine culture reveled Entercoccus Faecalis. He will require additional 4 days of treatment. He does have chronic urinary retention due to BPH and routinely self catheters 4 times a day. Hyponatremia has improved on a fluid restriction. Sodium this morning has normalized to 134. Due to ongoing behaviors and known history of dementia. Patient was accepted to the generations unit for further ongoing psychiatric evaluation and treatment. He is seen this morning for initial evaluation, he is alert and pleasant. He states "Today is the day for Victory, strap on your sword". He denies having any pain or shortness of breath. He underwent a straight cathetered this morning which revealed 800 ML's of urine retention. Vital signs reviewed, BP slightly elevated at 162/77. Review of Systems ROS unobtainable: due to mental status Review of systems: Patient did deny entire review of systems during exam - Genitourinary Genitourinary: Present: difficulty urinating PFSH Patient Stated Medical History Alzheimer's Disease Dementia Chronic hyponatremia AAA- both thoracic and abdominal aortic aneurysm BPH Hypertension History of prostate cancer Chronic urinary retention with self cathetering History of recurrent UTIs Surgical History: Aneurysm repair. Colonoscopy Family History: Family history positive for dementia - Social History Smoking status: Never smoker Substance use type: does not use Alcohol intake frequency: does not drink Household members: spouse Social history: PCP Dr Nieves Medications Home Medications Medication Instructions Recorded Confirmed Type Acetaminophen 500 mg PO Q4H PRN #0 09/07/15 09/23/16 History Amlodipine Besylate 7.5 mg PO DAILY #0 09/07/15 09/23/16 History Ibuprofen [Advil] 200 mg PO Q4H PRN #0 09/07/15 09/23/16 History Silodosin [Rapaflo] 8 mg PO WS #0 09/07/15 09/23/16 History Escitalopram [Lexapro] 10 mg PO HS 09/18/16 09/23/16 History Lisinopril [Prinivil] 20 mg PO DAILY 09/18/16 09/23/16 History Melatonin 10 mg PO HS 09/18/16 09/23/16 History Memantine HCl/Donepezil HCl 1 cap PO QAM 09/18/16 09/23/16 History [Namzaric 28 mg-10 mg Capsule] Nitrofurantoin Monohyd/M-Cryst 100 mg PO BID 09/18/16 09/23/16 History [Macrobid 100 mg Capsule] Bisacodyl EC Tab [Dulcolax] 5 mg PO DAILY PRN 09/23/16 09/23/16 History Allergies Allergy/AdvReac Type Severity Reaction Status Date / Time No Known Allergies Allergy Verified 09/18/16 19:23 Exam Vital Signs: Temperature 98.3 F 09/24/16 08:00 Pulse Rate 75 09/24/16 08:00 Respiratory Rate 16 09/24/16 08:00 Blood Pressure 162/77 H 09/24/16 08:00 Pulse Oximetry 96 09/24/16 08:00 Oxygen Delivery Method Room Air Height: 1.65 m Weight: 89.2 kg Body Mass Index: 32.7 - Constitutional Present: no acute distress, well nourished, well developed - Routine HEENT Exam Head: Present: normocephalic Eye: Present: EOMI, PERRL ENT: Present: mucous membranes moist, dentition normal - Routine Neck Exam Present: full ROM - Routine Respiratory Exam Present: CTA bilaterally. Absent: wheezes - Routine Cardiovascular Exam Present: RRR, S1, S2, no murmur. Absent: murmur - Routine Abdominal Exam Present: soft, normoactive bowel sounds, non distended. Absent: tenderness - Routine Extremities Exam Present: normal capillary refill - Routine Back/Spine/Pelvis Exam Back/Spine: Present: full ROM - Routine Skin Exam Present: intact, dry, warm - Routine Neurological Exam Present: alert, CN II-XII intact, moving all extremities - Routine Psychiatric Exam Present: normal affect, cooperative Results - Labs CBC & Chem 7: 09/24/16 06:39 Assessment and Plan (1) UTI (urinary tract infection) Problem details: Complicated by his history of self straight catheterization for benign prostatic hypertrophy. Enterococcus growing. He does not appear septic at this time. Current visit: No Status: Acute (2) Dementia Current visit: No Status: Chronic Assessment and Plan: Impression Acute UTI Recent hyponatremia-resolved Dementia with behaviors Hypertension. BPH with chronic retention Plan Agree with admission to generations unit under the care of Dr. Brown for further psychiatric evaluation and treatment. Will continue with current antimicrobial coverage, Macrobid 100 milligrams twice a day for 4 additional days, and date 09/28/16. Hyponatremia appears to be resolved. Sodium today is 134. Will discontinue fluid restriction and periodically monitor sodium level. Continue on current regimen for Hypertension. Lopressor 12.5 milligrams daily, lisinopril 20 milligrams daily, Norvasc 7.5 milligrams daily. Continue with Lasix 20 milligrams daily for gentle diuresis. Continue with scheduled straight catheterization 4 times a day. Encourage patient to participate in unit activities and provide a safe environment. Will recheck a BMP on Wednesday 09/27 to monitor for further hyponatremia. Appreciate medical consultation. At time of discharge medical care will return to primary care provider, Sepsis Assessment - Evaluation Sepsis screening result: No Definite Risk Hospital Course Summary Disclaimer: The visit summary below is not to be considered part of the above Progress Note. Hospital Course: 09/24/16- Initial consult Impression Acute UTI Recent hyponatremia-resolved Dementia with behaviors Hypertension. BPH with chronic retention Plan Agree with admission to generations unit under the care of Dr. Brown for further psychiatric evaluation and treatment. Will continue with current antimicrobial coverage, Macrobid 100 milligrams twice a day for 4 additional days, and date 09/28/16. Hyponatremia appears to be resolved. Sodium today is 134. Will discontinue fluid restriction and periodically monitor sodium level. Continue on current regimen for Hypertension. Lopressor 12.5 milligrams daily, lisinopril 20 milligrams daily, Norvasc 7.5 milligrams daily. Continue with Lasix 20 milligrams daily for gentle diuresis. Continue with scheduled straight catheterization 4 times a day. Encourage patient to participate in unit activities and provide a safe environment. Will recheck a BMP on Wednesday 09/27 to monitor for further hyponatremia. Appreciate medical consultation. At time of discharge medical care will return to primary care provider, <Danielle Houser - Last Filed: 09/24/16 18:01> History of Present Illness Date: 09/24/16 [facility] Patient Stated Medical History Alzheimer's Disease Yes Dementia Yes Other Cardiology Yes: AAA ANUERESYM Hx Benign Prostatic Yes Hyperplasia Other Yes: PROSTATE CA Shingles Yes Exam Vital Signs: Temperature 97.4 F 09/24/16 16:00 Pulse Rate 65 09/24/16 16:00 Respiratory Rate 18 09/24/16 16:00 Blood Pressure 145/68 H 09/24/16 16:00 Pulse Oximetry 97 09/24/16 16:00 Oxygen Delivery Method Room Air Height/Weight/BMI: Height 1.65 m Weight 89.2 kg Body Mass Index 32.7 Height: 1.65 m Weight: 89.2 kg Results - Labs CBC & Chem 7: 09/24/16 06:39 Assessment and Plan (1) UTI (urinary tract infection) Problem details: Complicated by his history of self straight catheterization for benign prostatic hypertrophy. Enterococcus growing. He does not appear septic at this time. Current visit: No Status: Acute (2) Dementia Current visit: No Status: Chronic Assessment and Plan: I have independently evaluated and examined this patient. I reviewed the chart, the patient's history, and the [employer]/PA's documented findings as above. We discussed and formulated the assessment and plan as above with additions as below: Mr. Hernandez was seen with his late this afternoon. The patient was talkative and pleasant. He denied pain or other acute symptoms including any current urinary difficulty other than chronic retention for which he straight catheters. He has been afebrile and denied dyspnea or pain. The patient was alert and cooperative although required some guidance to stay on track. Respirations nonlabored with clear breath sounds. Sensation intact to light touch 4 extremities. Motor tone normal, no tremors present. Blood pressure modestly elevated once this afternoon-will continue monitoring. Enterococcus best treated with either ampicillin/amoxicillin or vancomycin- review of culture indicate sensitivity to ampicillin and subsequently antibiotic has been converted to amoxicillin 3 times daily for anticipated five- day course. Hospital Course Summary Disclaimer: The visit summary below is not to be considered part of the above Progress Note.
--- NOTE | 2016-09-24 16:48 | Neuropsych Progress Note ---
[facility]ations Subjective Date: 09/24/16 - Sujective/Severity of Illness Medications: Acetaminophen (Tylenol) 500 mg PO Q4H PRN PRN Reason: P Amlodipine Besylate (Norvasc) 7.5 mg PO DAILY [facility] Last Admin: 09/24/16 07:59 Dose: 7.5 mg Bisacodyl (Dulcolax) 5 mg PO DAILY PRN PRN Reason: Constipation Escitalopram Oxalate (Lexapro) 10 mg PO [facility] Furosemide (Lasix) 20 mg PO DAILY [facility] Last Admin: 09/24/16 07:59 Dose: 20 mg Haloperidol (Haldol) 0.5 mg PO Q6H PRN PRN Reason: Extreme agitation Haloperidol Lactate (Haldol) 0.5 mg IM Q6H PRN PRN Reason: Extreme agitation Ibuprofen (Motrin) 200 mg PO Q4H PRN PRN Reason: P Lisinopril (Prinivil) 20 mg PO DAILY [facility] Last Admin: 09/24/16 08:01 Dose: 20 mg Lorazepam (Ativan Inj) 0.5 mg IM Q6H PRN PRN Reason: Extreme agitation Lorazepam (Ativan) 0.5 mg PO Q6H PRN PRN Reason: Extreme agitation Lorazepam (Ativan Intensol) 0.5 mg SL Q6H PRN Last Admin: 09/24/16 04:02 Dose: 0.5 mg Metoprolol Tartrate (Lopressor) 12.5 mg PO WB [facility] [place] Last Admin: 09/24/16 08:00 Dose: 12.5 mg Nitrofurantoin Macrocrystals (Macrobid) 100 mg PO BIDWM [facility] [place] Last Admin: 09/24/16 07:59 Dose: 100 mg Pom Namzaric 28/10 1 cap PO QAM [facility] Last Admin: 09/24/16 08:01 Dose: 1 cap Risperidone (Risperdal) 0.25 mg PO BID [facility] Subjective: Pt seen and chart examined. Nursing reports pt had some issues with sleep last night and was given Ativan at 0400. On face to face the pt states he is doing well. he is pleasant but confused. Requires some redirection from staff at times for wandering behavior and intrusiveness. Tolerating meds. Denies pain Start Time: 15:30 Stop Time: 15:45 Mental Status Exam Vitals: Last Vital Signs Temp 97.4 F 08/15/17 16:00 Pulse 65 09/24/16 16:00 Resp 18 09/24/16 16:00 BP 145/68 H 09/24/16 16:00 Pulse Ox 97 09/24/16 16:00 Height: 1.65 m Weight: 89.2 kg - Mental Status Exam Muscle Strength/Tone: Normal Dressing: Casual Grooming: Good Attitude: Cooperative Motor Activity: Retardation Eye Contact: Fair Speech: Slowed Volume: Soft Rhythm: Appropriate Rhythm Orientation: Oriented to person, Oriented to time Mood: Neutral Rate of Thoughts: Delayed Thought Organization: [place] Associations: Intact Abstract Reasoning: Poor abstract reasoning Thought Content: Normal Perception/Psychotic: Perception Normal Language: Naming Impaired Fund of Knowledge: Poor fund of knowledge Memory: Poor-immediate, Poor-recent Suicidal Ideation: None Homicidal Ideation: None Insight: Poor Judgement: Poor Impulse Control: Poor - Laboratory Result Diagrams: 09/24/16 06:39 Laboratory Results - last 24 hr 09/24/16 06:39 Turbidity < 20 Sodium 134 Potassium 4.6 Chloride 97 L Carbon Dioxide 29 Anion Gap 8 BUN 22.0 H Creatinine 0.9 D GFR Calculation 83 BUN/Creatinine Ratio 24 Glucose 94 Hemoglobin A1c 5.9 L Calculated Osmolality 261 Calcium 8.6 Phosphorus 3.7 Icterus Index < 2 Albumin 3.7 Specimen Hemolysis < 15 Assessment and Plan (1) Major neurocognitive disorder due to Alzheimer's disease, probable, with behavioral disturbance Current visit: Yes Status: Acute Hospital Course Summary Disclaimer: The visit summary below is not to be considered part of the above Progress Note. Hospital Course: 09/24/16- Initial consult Impression Acute UTI Recent hyponatremia-resolved Dementia with behaviors Hypertension. BPH with chronic retention Plan Agree with admission to [facility] unit under the care of Dr. Brown for further psychiatric evaluation and treatment. Will continue with current antimicrobial coverage, Macrobid 100 milligrams twice a day for 4 additional days, and date 09/28/16. Hyponatremia appears to be resolved. Sodium today is 134. Will discontinue fluid restriction and periodically monitor sodium level. Continue on current regimen for Hypertension. Lopressor 12.5 milligrams daily, lisinopril 20 milligrams daily, Norvasc 7.5 milligrams daily. Continue with Lasix 20 milligrams daily for gentle diuresis. Continue with scheduled straight catheterization 4 times a day. Encourage patient to participate in unit activities and provide a safe environment. Will recheck a BMP on Wednesday 09/27 to monitor for further hyponatremia. Appreciate medical consultation. At time of discharge medical care will return to primary care provider, 09/24/16 16:48 Risperdal 0.25mg PO BID
[2016-09-24] MEDS: AMOXICILLIN 500 MG CAPSULE PO SCH (17:44)
[2016-09-25] MEDS: AMOXICILLIN 500 MG CAPSULE PO SCH ×4 (01:19→21:39)
[2016-09-25] MEDS: FUROSEMIDE 20 MG TABLET PO SCH (08:17)
[2016-09-25] MEDS: AMLODIPINE 5 MG TABLET PO SCH (08:18)
[2016-09-25] MEDS: LISINOPRIL 20 MG TABLET PO SCH (08:20)
[2016-09-25] MEDS: NAMZARIC PO SCH (08:20)
[2016-09-25] MEDS ORDERED: MAG-AL + SIM ORAL LIQUID 30ml PO PRN (15:05)
[2016-09-25] MEDS: ACETAMINOPHEN 500 MG TABLET PO PRN (15:06)
--- NOTE | 2016-09-25 18:09 | Neuropsych Progress Note ---
[facility] Subjective Date: 09/25/16 - Sujective/Severity of Illness Medications: Acetaminophen (Tylenol) 500 mg PO Q4H PRN PRN Reason: P Last Admin: 09/25/16 15:06 Dose: 500 mg Al Hydroxide/Mg Hydroxide (Maalox Plus) 30 ml PO Q4H PRN PRN Reason: Indigestion Last Admin: 09/25/16 15:06 Dose: 30 ml Amlodipine Besylate (Norvasc) 7.5 mg PO DAILY [facility] Last Admin: 09/25/16 08:18 Dose: 7.5 mg Amoxicillin () 500 mg PO 06,, [facility] Last Admin: 09/25/16 14:40 Dose: 500 mg Bisacodyl (Dulcolax) 5 mg PO DAILY PRN PRN Reason: Constipation Escitalopram Oxalate (Lexapro) 10 mg PO HS [facility] Last Admin: 09/24/16 20:50 Dose: 10 mg Furosemide (Lasix) 20 mg PO DAILY [facility] Last Admin: 09/25/16 08:17 Dose: 20 mg Haloperidol (Haldol) 0.5 mg PO Q6H PRN PRN Reason: Extreme agitation Haloperidol Lactate (Haldol) 0.5 mg IM Q6H PRN PRN Reason: Extreme agitation Ibuprofen (Motrin) 200 mg PO Q4H PRN PRN Reason: P Lisinopril (Prinivil) 20 mg PO DAILY [facility] Last Admin: 09/25/16 08:20 Dose: 20 mg Lorazepam (Ativan Inj) 0.5 mg IM Q6H PRN PRN Reason: Extreme agitation Lorazepam (Ativan) 0.5 mg PO Q6H PRN PRN Reason: Extreme agitation Lorazepam (Ativan Intensol) 0.5 mg SL Q6H PRN Last Admin: 09/24/16 04:02 Dose: 0.5 mg Metoprolol Tartrate (Lopressor) 12.5 mg PO WB [facility] Last Admin: 09/25/16 08:19 Dose: 12.5 mg Pom Namzaric 28/10 1 cap PO QAM [facility] Last Admin: 09/25/16 08:20 Dose: 1 cap Risperidone (Risperdal) 0.25 mg PO BID [facility] Last Admin: 09/25/16 08:18 Dose: 0.25 mg Subjective: Pt seen and chart examined. Nursing reports pt continues to have issues with sleep. Pt received Ativan at 0400. Pt does well during the day and no behaviors noted. On face to face the pt is pleasant but confused. He is oriented x 2. he reports his mood is stable. Denies S/I or psychosis. Tolerating meds Start Time: 17:00 Stop Time: 17:15 Mental Status Exam Vitals: Last Vital Signs Temp 98.3 F 09/25/16 16:00 Pulse 63 09/25/16 16:00 Resp 16 09/25/16 16:00 BP 137/76 09/25/16 16:00 Pulse Ox 98 09/25/16 16:00 Height: 1.65 m Weight: 89.2 kg - Mental Status Exam Muscle Strength/Tone: Normal Dressing: Casual Grooming: Good Attitude: Cooperative Motor Activity: Retardation Eye Contact: Fair Speech: Slowed Volume: Soft Rhythm: Appropriate Rhythm Orientation: Oriented to person, Oriented to time Mood: Neutral Rate of Thoughts: Delayed Thought Organization: [place] Associations: Intact Abstract Reasoning: Poor abstract reasoning Thought Content: Normal Perception/Psychotic: Perception Normal Language: Naming Impaired Fund of Knowledge: Poor fund of knowledge Memory: Poor-immediate, Poor-recent Suicidal Ideation: None Homicidal Ideation: None Insight: Poor Judgement: Poor Impulse Control: Poor - Laboratory Result Diagrams: 09/24/16 06:39 Assessment and Plan (1) Major neurocognitive disorder due to Alzheimer's disease, probable, with behavioral disturbance Current visit: Yes Status: Acute Hospital Course Summary Disclaimer: The visit summary below is not to be considered part of the above Progress Note. Hospital Course: 09/24/16- Initial consult Impression Acute UTI Recent hyponatremia-resolved Dementia with behaviors Hypertension. BPH with chronic retention Plan Agree with admission to [facility] under the care of Dr. Brown for further psychiatric evaluation and treatment. Will continue with current antimicrobial coverage, Macrobid 100 milligrams twice a day for 4 additional days, and date 09/28/16. Hyponatremia appears to be resolved. Sodium today is 134. Will discontinue fluid restriction and periodically monitor sodium level. Continue on current regimen for Hypertension. Lopressor 12.5 milligrams daily, lisinopril 20 milligrams daily, Norvasc 7.5 milligrams daily. Continue with Lasix 20 milligrams daily for gentle diuresis. Continue with scheduled straight catheterization 4 times a day. Encourage patient to participate in unit activities and provide a safe environment. Will recheck a BMP on Wednesday 09/27 to monitor for further hyponatremia. Appreciate medical consultation. At time of discharge medical care will return to primary care provider, 09/24/16 16:48 Risperdal 0.25mg PO BID 09/25/16 18:08 Pt continues to have issues with sleep. Will start Trazodone 50mg PO QHS
[2016-09-25] MEDS: ESCITALOPRAM 10 MG TABLET PO SCH (21:40)
[2016-09-25] MEDS: TRAZODONE 50 MG TABLET PO SCH (21:52)
[2016-09-26] MEDS: AMOXICILLIN 500 MG CAPSULE PO SCH ×3 (06:33→21:13)
[2016-09-26] MEDS: AMLODIPINE 5 MG TABLET PO SCH (08:22)
[2016-09-26] MEDS: NAMZARIC PO SCH (08:22)
[2016-09-26] MEDS: FUROSEMIDE 20 MG TABLET PO SCH (08:22)
[2016-09-26] MEDS: LISINOPRIL 20 MG TABLET PO SCH (08:23)
--- NOTE | 2016-09-26 19:08 | Neuropsych Progress Note ---
[facility] Subjective Date: 09/26/16 - Sujective/Severity of Illness Medications: Acetaminophen (Tylenol) 500 mg PO Q4H PRN PRN Reason: P Last Admin: 09/25/16 15:06 Dose: 500 mg Al Hydroxide/Mg Hydroxide (Maalox Plus) 30 ml PO Q4H PRN PRN Reason: Indigestion Last Admin: 09/25/16 15:06 Dose: 30 ml Amlodipine Besylate (Norvasc) 7.5 mg PO DAILY [facility] Last Admin: 09/26/16 08:22 Dose: 7.5 mg Amoxicillin () 500 mg PO ,, [facility] Last Admin: 09/26/16 14:59 Dose: 500 mg Bisacodyl (Dulcolax) 5 mg PO DAILY PRN PRN Reason: Constipation Escitalopram Oxalate (Lexapro) 10 mg PO HS [facility] Last Admin: 09/25/16 21:40 Dose: 10 mg Furosemide (Lasix) 20 mg PO DAILY [facility] Last Admin: 09/26/16 08:22 Dose: 20 mg Haloperidol (Haldol) 0.5 mg PO Q6H PRN PRN Reason: Extreme agitation Haloperidol Lactate (Haldol) 0.5 mg IM Q6H PRN PRN Reason: Extreme agitation Ibuprofen (Motrin) 200 mg PO Q4H PRN PRN Reason: P Lisinopril (Prinivil) 20 mg PO DAILY [facility] Last Admin: 09/26/16 08:23 Dose: 20 mg Lorazepam (Ativan Inj) 0.5 mg IM Q6H PRN PRN Reason: Extreme agitation Lorazepam (Ativan) 0.5 mg PO Q6H PRN PRN Reason: Extreme agitation Lorazepam (Ativan Intensol) 0.5 mg SL Q6H PRN Last Admin: 09/24/16 04:02 Dose: 0.5 mg Metoprolol Tartrate (Lopressor) 12.5 mg PO WB [facility] Last Admin: 09/26/16 08:21 Dose: 12.5 mg Pom Namzaric /10 1 cap PO QAM [facility] Last Admin: 09/26/16 08:22 Dose: 1 cap Risperidone (Risperdal) 0.25 mg PO BID [facility] Last Admin: 09/26/16 08:23 Dose: 0.25 mg Trazodone HCl (Desyrel) 50 mg PO HS [facility] Last Admin: 09/25/16 21:52 Dose: 50 mg Subjective: Pt seen and chart examined. Nursing reports pt is doing well. Slept better last night and has a good appetite. On face to face the pt states he is doing well. He is oriented x 3. He reports tolerating his medication well. Denies S /I or psychosis. Start Time: 18:00 Stop Time: 18:15 Mental Status Exam Vitals: Last Vital Signs Temp 97.4 F 09/26/16 16:42 Pulse 64 09/26/16 16:42 Resp 18 09/26/16 16:42 BP 151/78 H 09/26/16 16:42 Pulse Ox 97 09/26/16 16:42 Height: 1.65 m Weight: 89.2 kg - Mental Status Exam Muscle Strength/Tone: Normal Dressing: Casual Grooming: Good Attitude: Cooperative Motor Activity: Retardation Eye Contact: Fair Speech: Slowed Volume: Soft Rhythm: Appropriate Rhythm Orientation: Oriented to person, Oriented to time Mood: Neutral Rate of Thoughts: Delayed Thought Organization: [place] Associations: Intact Abstract Reasoning: Poor abstract reasoning Thought Content: Normal Perception/Psychotic: Perception Normal Language: Naming Impaired Fund of Knowledge: Poor fund of knowledge Memory: Poor-immediate, Poor-recent Suicidal Ideation: None Homicidal Ideation: None Insight: Poor Judgement: Poor Impulse Control: Poor - Laboratory Result Diagrams: 09/24/16 06:39 Laboratory Results - last 24 hr 09/24/16 06:39 Triglycerides 51 Cholesterol 161 LDL Cholesterol, Calc 86.8 VLDL Cholesterol 10.2 HDL Cholesterol 64 H Cholesterol/HDL Ratio 2.5 Assessment and Plan (1) Major neurocognitive disorder due to Alzheimer's disease, probable, with behavioral disturbance Current visit: Yes Status: Acute Hospital Course Summary Disclaimer: The visit summary below is not to be considered part of the above Progress Note. Hospital Course: 09/24/16- Initial consult Impression Acute UTI Recent hyponatremia-resolved Dementia with behaviors Hypertension. BPH with chronic retention Plan Agree with admission to [facility] under the care of Dr. Brown for further psychiatric evaluation and treatment. Will continue with current antimicrobial coverage, Macrobid 100 milligrams twice a day for 4 additional days, and date 09/28/16. Hyponatremia appears to be resolved. Sodium today is 134. Will discontinue fluid restriction and periodically monitor sodium level. Continue on current regimen for Hypertension. Lopressor 12.5 milligrams daily, lisinopril 20 milligrams daily, Norvasc 7.5 milligrams daily. Continue with Lasix 20 milligrams daily for gentle diuresis. Continue with scheduled straight catheterization 4 times a day. Encourage patient to participate in unit activities and provide a safe environment. Will recheck a BMP on Wednesday 09/27 to monitor for further hyponatremia. Appreciate medical consultation. At time of discharge medical care will return to primary care provider, 09/24/16 16:48 Risperdal 0.25mg PO BID 09/25/16 18:08 Pt continues to have issues with sleep. Will start Trazodone 50mg PO QHS 09/26/16 19:08 Increase HS Risperdal to 0.5mg
[2016-09-26] MEDS: TRAZODONE 50 MG TABLET PO SCH (21:13)
[2016-09-26] MEDS: RisperiDONE 0.5 MG TABLET PO SCH ×2 (21:13→23:36)
[2016-09-26] MEDS: ESCITALOPRAM 10 MG TABLET PO SCH (21:13)
[2016-09-26] MEDS: ACETAMINOPHEN 500 MG TABLET PO PRN (21:38)
[2016-09-27] MEDS: IBUPROFEN 200 MG TABLET PO PRN (04:03)
[2016-09-27] MEDS: AMOXICILLIN 500 MG CAPSULE PO SCH ×4 (05:44→21:10)
[2016-09-27] MEDS: NAMZARIC PO SCH (08:21)
[2016-09-27] MEDS: FUROSEMIDE 20 MG TABLET PO SCH (08:21)
[2016-09-27] MEDS: LISINOPRIL 20 MG TABLET PO SCH (08:22)
[2016-09-27] MEDS: AMLODIPINE 5 MG TABLET PO SCH (08:22)
--- NOTE | 2016-09-27 10:49 | Progress Note ---
<Francy Aguilar - Last Filed: 09/27/16 10:44> Subjective: Mr. Hernandez is seen this morning in follow up for his dementia and recent altered mental status secondary to an acute UTI secondary to Entercoccus Faecalis. He is seen while resting in bed, listening to music on his headphones. He denies any complaints including no fevers, chills, chest pain, shortness of breath, abdominal pain, nausea, vomiting or dysuria. He states that he slept well last night and his appetite is good. Nursing notes indicate that his bowels are moving. Overall, he appears to be doing better and denies any psychosis or suicidal ideations. His sleeping routine has improved with the addition of trazodone and the increase in Risperdal by psychiatric team. He does request medication for his allergies, specifically Benadryl, on exam. He admits that Benadryl tends to make him sleepy but has never tried anything else. He is open to trying another medication that doesn't make him sleepy if it would help. He remains on amoxicillin for his recent UTI, which is to be completed on 10/02. On exam, he is resting in bed and is alert and orientated x3. He is in no apparent distress and is cooperative on exam. Cardiac exam reveals regular rate and rhythm and lungs are clear to auscultation bilaterally. Abdomen is soft, nontender with active bowel sounds and nontender. No edema noted to lower extremities. BMP from today revealed sodium 134, potassium 4.4, BUN 24, SCr 1.0 and hyperglycemia with glucose 131. A1c on 09/24 was 5.9. No repeat CBC was completed. Vital signs are stable, though elevated blood pressure with systolic pressure >150's noted with evening blood pressure checks despite Norvasc, lasix, lisinopril and metoprolol. Objective Vital signs: Temperature 98.0 F 09/27/16 08:00 Pulse Rate 64 09/27/16 08:00 Respiratory Rate 16 09/27/16 08:00 Blood Pressure 154/73 H 09/27/16 08:00 Pulse Oximetry 95 09/27/16 08:00 Oxygen Delivery Method Room Air Height/Weight/BMI: Height 5 ft 5 in Weight 196 lb 10.437 oz Body Mass Index 32.7 - Constitutional Present: no acute distress, well nourished, well developed, cooperative - Routine HEENT Exam Head: Present: normocephalic, atraumatic Eye: Present: PERRL. Absent: conjunctival icterus, scleral injection ENT: Present: mucous membranes moist - Routine Respiratory Exam Present: CTA bilaterally. Absent: stridor, wheezes, crackles - Routine Cardiovascular Exam Present: RRR, S1, S2 - Routine Abdominal Exam Present: soft, normoactive bowel sounds, non tender - Routine Extremities Exam Present: no edema, non tender, pulses intact. Absent: cyanosis, clubbing - Routine Back/Spine/Pelvis Exam Back/Spine: Present: full ROM. Absent: erythema - Routine Musculoskeletal Exam Musculoskeletal: Present: no clubbing or cyanosis, normal strength, no tenderness, moving extremities well - Routine Skin Exam Present: intact, dry, warm. Absent: jaundice - Routine Neurological Exam Present: alert, oriented X3, moving all extremities, normal speech. Absent: facial asymmetry - Routine Lymphatic Exam Lymphatic: Absent: lymphedema - Routine Psychiatric Exam Present: cooperative Results - Labs CBC & Chem 7: 09/27/16 05:14 Assessment and Plan (1) UTI (urinary tract infection) Problem details: Complicated by his history of self straight catheterization for benign prostatic hypertrophy. Enterococcus growing. He does not appear septic at this time. Current visit: No Status: Acute (2) Dementia Current visit: No Status: Chronic Resuscitation Status: Do Not Resuscitate Assessment and Plan: 09/27-[place]. UTI, acute. * Culture and sensitivity revealed Entercoccus Faecales sensitive to ampicillin , vancomycin and linezolid. Patient was initially started on Rocephin, then changed to Macrobid. Once sensitivity was available, patient was initiated on amoxicillin TID to be continued until 10/02. Continue to monitor closely for signs of further infection. High risk in light of self catheterizations. Will recheck CBC on 09/30 to monitor blood counts. Dementia, chronic. * Continue care per psychiatric team. Continue to provide safe and supportive environment and encourage floor activities. Sleeping improved with addition of trazodone at night. Hypertension, chronic. * Blood pressure noted to be elevated with systolic >150's during afternoon and evening hours. Will increase Norvasc from 7.5mg to 10mg daily and continue to monitor closely. Continue Lasix 20mg, metoprolol and lisinopril 20mg daily. Monitor for signs of hypotension and orthostasis. Will adjust diet to cardiac diet with 2g sodium restriction. Anemia, present on admission. * Hemoglobin was slightly low on admission at 13.4. Will monitor periodically throughout admission. Recheck CBC on 09/30 to monitor blood counts. Hyponatremia, RESOLVED. * BMP today showed sodium 134. Continue 2000mL fluid restriction and recheck BMP on 09/30 to monitor electrolytes and renal function. History of BPH with occasional self catheterizing, chronic. - Time spent with patient 25 - 35 minutes Sepsis Assessment - Evaluation Sepsis screening result: No Definite Risk Hospital Course Summary Disclaimer: The visit summary below is not to be considered part of the above Progress Note. Hospital Course: 09/24/16- Initial consult Impression Acute UTI Recent hyponatremia-resolved Dementia with behaviors Hypertension. BPH with chronic retention Plan Agree with admission to [facility] under the care of Dr. Brown for further psychiatric evaluation and treatment. Will continue with current antimicrobial coverage, Macrobid 100 milligrams twice a day for 4 additional days, and date 09/28/16. Hyponatremia appears to be resolved. Sodium today is 134. Will discontinue fluid restriction and periodically monitor sodium level. Continue on current regimen for Hypertension. Lopressor 12.5 milligrams daily, lisinopril 20 milligrams daily, Norvasc 7.5 milligrams daily. Continue with Lasix 20 milligrams daily for gentle diuresis. Continue with scheduled straight catheterization 4 times a day. Encourage patient to participate in unit activities and provide a safe environment. Will recheck a BMP on Wednesday 09/27 to monitor for further hyponatremia. Appreciate medical consultation. At time of discharge medical care will return to primary care provider, 09/24/16 16:48 Risperdal 0.25mg PO BID I have independently evaluated and examined this patient. I reviewed the chart, the patient's history, and the NETWORK PLANNER/PA's documented findings as above. We discussed and formulated the assessment and plan as above with additions as below: Mr. Hernandez was seen with his late this afternoon. The patient was talkative and pleasant. He denied pain or other acute symptoms including any current urinary difficulty other than chronic retention for which he straight catheters. He has been afebrile and denied dyspnea or pain. The patient was alert and cooperative although required some guidance to stay on track. Respirations nonlabored with clear breath sounds. Sensation intact to light touch 4 extremities. Motor tone normal, no tremors present. Blood pressure modestly elevated once this afternoon-will continue monitoring. Enterococcus best treated with either ampicillin/amoxicillin or vancomycin- review of culture indicate sensitivity to ampicillin and subsequently antibiotic has been converted to amoxicillin 3 times daily for anticipated five- day course. 09/25/16 18:08 Pt continues to have issues with sleep. Will start Trazodone 50mg PO QHS 09/26/16 19:08 Increase HS Risperdal to 0.5mg 09/27/16 11:12 UTI, acute. * Culture and sensitivity revealed Entercoccus Faecales sensitive to ampicillin , vancomycin and linezolid. Patient was initially started on Rocephin, then changed to Macrobid. Once sensitivity was available, patient was initiated on amoxicillin TID to be continued until 10/02. Continue to monitor closely for signs of further infection. High risk in light of self catheterizations. Will recheck CBC on 09/30 to monitor blood counts. Dementia, chronic. * Continue care per psychiatric team. Continue to provide safe and supportive environment and encourage floor activities. Sleeping improved with addition of trazodone at night. Hypertension, chronic. * Blood pressure noted to be elevated with systolic >150's during afternoon and evening hours. Will increase Norvasc from 7.5mg to 10mg daily and continue to monitor closely. Continue Lasix 20mg, metoprolol and lisinopril 20mg daily. Monitor for signs of hypotension and orthostasis. Will adjust diet to cardiac diet with 2g sodium restriction. Anemia, present on admission. * Hemoglobin was slightly low on admission at 13.4. Will monitor periodically throughout admission. Recheck CBC on 09/30 to monitor blood counts. Hyponatremia, RESOLVED. * BMP today showed sodium 134. Continue 2000mL fluid restriction and recheck BMP on 09/30 to monitor electrolytes and renal function. History of BPH with occasional self catheterizing, chronic. <Tmay Sparks - Last Filed: 09/27/16 17:45> Objective Vital signs: Temperature 98.0 F 09/27/16 17:05 Pulse Rate 65 09/27/16 17:05 Respiratory Rate 16 09/27/16 17:05 Blood Pressure 162/84 H 09/27/16 17:05 Pulse Oximetry 97 09/27/16 17:05 Oxygen Delivery Method Room Air Height/Weight/BMI: Height 1.65 m Weight 89.2 kg Body Mass Index 32.7 Results - Labs CBC & Chem 7: 09/27/16 05:14 Assessment and Plan (1) UTI (urinary tract infection) Problem details: Complicated by his history of self straight catheterization for benign prostatic hypertrophy. Enterococcus growing. He does not appear septic at this time. Current visit: No Status: Acute (2) Dementia Current visit: No Status: Chronic Assessment and Plan: 09/27/2016-I reviewed this chart, the patient history, and the NETWORK PLANNER's/PA's documented findings as above. We discussed and formulated the assessment and plan as above with the additions below.-Dr. Sparks The patient was seen today accompanied by his . He states he is feeling okay and denies any pain. He is eating and drinking well. He states he is waking up around 3 in the morning and his states that is not unusual for him. She states the psychiatrist is working on trying to improve his sleep at night. The patient states he was sad that he missed a 72 year wedding anniversary green party today. Other than that, he's feeling okay. On exam he is alert and in no acute distress. Chest is clear to auscultation. Cardiovascular reveals a regular rate and rhythm. Abdomen is soft and nontender. Extremities are free of edema. The patient continues on amoxicillin for UTI. If blood pressure remains elevated after low-sodium diet is initiated, consider increase in lisinopril to twice a day. Overall, the patient appears to be doing well. Continue with current treatment. Hospital Course Summary Disclaimer: The visit summary below is not to be considered part of the above Progress Note.
[2016-09-27] MEDS: LORazepam 0.5 MG TABLET PO PRN (11:01)
--- NOTE | 2016-09-27 18:02 | Neuropsych Progress Note ---
[facility] Subjective Date: 09/27/16 - Sujective/Severity of Illness Medications: Acetaminophen (Tylenol) 500 mg PO Q4H PRN PRN Reason: P Last Admin: 09/26/16 21:38 Dose: 500 mg Al Hydroxide/Mg Hydroxide (Maalox Plus) 30 ml PO Q4H PRN PRN Reason: Indigestion Last Admin: 09/25/16 15:06 Dose: 30 ml Amlodipine Besylate (Norvasc) 10 mg PO DAILY [facility] Amoxicillin () 500 mg PO ,, [facility] Stop: 10/02/16 23:59 Last Admin: 09/27/16 15:14 Dose: 500 mg Bisacodyl (Dulcolax) 5 mg PO DAILY PRN PRN Reason: Constipation Escitalopram Oxalate (Lexapro) 10 mg PO [facility] Last Admin: 09/26/16 21:13 Dose: 10 mg Furosemide (Lasix) 20 mg PO DAILY [facility] Last Admin: 09/27/16 08:21 Dose: 20 mg Haloperidol (Haldol) 0.5 mg PO Q6H PRN PRN Reason: Extreme agitation Haloperidol Lactate (Haldol) 0.5 mg IM Q6H PRN PRN Reason: Extreme agitation Ibuprofen (Motrin) 200 mg PO Q4H PRN PRN Reason: P Last Admin: 09/27/16 04:03 Dose: 200 mg Lisinopril (Prinivil) 20 mg PO DAILY [facility] Last Admin: 09/27/16 08:22 Dose: 20 mg Lorazepam (Ativan Inj) 0.5 mg IM Q6H PRN PRN Reason: Extreme agitation Lorazepam (Ativan) 0.5 mg PO Q6H PRN PRN Reason: Extreme agitation Last Admin: 09/27/16 11:01 Dose: 0.5 mg Lorazepam (Ativan Intensol) 0.5 mg SL Q6H PRN Last Admin: 09/24/16 04:02 Dose: 0.5 mg Metoprolol Tartrate (Lopressor) 12.5 mg PO WB [facility] Last Admin: 09/27/16 08:20 Dose: 12.5 mg Pom Namzaric /10 1 cap PO QAM [facility] Last Admin: 09/27/16 08:21 Dose: 1 cap Risperidone (Risperdal) 0.5 mg PO HS [facility] Last Admin: 09/26/16 23:36 Dose: Not Given Risperidone (Risperdal) 0.25 mg PO DAILY [facility] Last Admin: 09/27/16 08:23 Dose: 0.25 mg Trazodone HCl (Desyrel) 100 mg PO [facility] Subjective: Pt seen and chart examined. Nursing reports pt is doing fairly well. Continues to have issues with sleep and only slept 3 hours last night. No behaviors noted. On face to face the pt states he is doing well. He is pleasant and cooperative. Denies pain and voices no concerns. Tolerating meds Start Time: 18:00 Stop Time: 18:15 Mental Status Exam Vitals: Last Vital Signs Temp 98.0 F 09/27/16 17:05 Pulse 65 09/27/16 17:05 Resp 16 09/27/16 17:05 BP 162/84 H 09/27/16 17:05 Pulse Ox 97 09/27/16 17:05 Height: 1.65 m Weight: 89.2 kg - Mental Status Exam Muscle Strength/Tone: Normal Dressing: Casual Grooming: Good Attitude: Cooperative Motor Activity: Retardation Eye Contact: Fair Speech: Slowed Volume: Soft Rhythm: Appropriate Rhythm Orientation: Oriented to person, Oriented to time Mood: Neutral Rate of Thoughts: Delayed Thought Organization: [place] Associations: Intact Abstract Reasoning: Poor abstract reasoning Thought Content: Normal Perception/Psychotic: Perception Normal Language: Naming Impaired Fund of Knowledge: Poor fund of knowledge Memory: Poor-immediate, Poor-recent Suicidal Ideation: None Homicidal Ideation: None Insight: Poor Judgement: Poor Impulse Control: Poor - Laboratory Result Diagrams: 09/27/16 05:14 Laboratory Results - last 24 hr 09/27/16 05:14 Turbidity < 20 Sodium 134 Potassium 4.4 Chloride 98 Carbon Dioxide 28 Anion Gap 8 BUN 24.0 H Creatinine 1.0 GFR Calculation 74 BUN/Creatinine Ratio 24 Glucose 131 H Calculated Osmolality 264 Calcium 8.6 Icterus Index < 2 Specimen Hemolysis < 15 Assessment and Plan (1) Major neurocognitive disorder due to Alzheimer's disease, probable, with behavioral disturbance Current visit: Yes Status: Acute Hospital Course Summary Disclaimer: The visit summary below is not to be considered part of the above Progress Note. Hospital Course: 09/24/16- Initial consult Impression Acute UTI Recent hyponatremia-resolved Dementia with behaviors Hypertension. BPH with chronic retention Plan Agree with admission to [facility] under the care of Dr. Brown for further psychiatric evaluation and treatment. Will continue with current antimicrobial coverage, Macrobid 100 milligrams twice a day for 4 additional days, and date 09/28/16. Hyponatremia appears to be resolved. Sodium today is 134. Will discontinue fluid restriction and periodically monitor sodium level. Continue on current regimen for Hypertension. Lopressor 12.5 milligrams daily, lisinopril 20 milligrams daily, Norvasc 7.5 milligrams daily. Continue with Lasix 20 milligrams daily for gentle diuresis. Continue with scheduled straight catheterization 4 times a day. Encourage patient to participate in unit activities and provide a safe environment. Will recheck a BMP on Wednesday 09/27 to monitor for further hyponatremia. Appreciate medical consultation. At time of discharge medical care will return to primary care provider, 09/24/16 16:48 Risperdal 0.25mg PO BID I have independently evaluated and examined this patient. I reviewed the chart, the patient's history, and the ABSORPTION AND ADSORPTION ENGINEER/PA's documented findings as above. We discussed and formulated the assessment and plan as above with additions as below: Mr. Hernandez was seen with his late this afternoon. The patient was talkative and pleasant. He denied pain or other acute symptoms including any current urinary difficulty other than chronic retention for which he straight catheters. He has been afebrile and denied dyspnea or pain. The patient was alert and cooperative although required some guidance to stay on track. Respirations nonlabored with clear breath sounds. Sensation intact to light touch 4 extremities. Motor tone normal, no tremors present. Blood pressure modestly elevated once this afternoon-will continue monitoring. Enterococcus best treated with either ampicillin/amoxicillin or vancomycin- review of culture indicate sensitivity to ampicillin and subsequently antibiotic has been converted to amoxicillin 3 times daily for anticipated five- day course. 09/25/16 18:08 Pt continues to have issues with sleep. Will start Trazodone 50mg PO QHS 09/26/16 19:08 Increase HS Risperdal to 0.5mg 09/27/16 11:12 UTI, acute. * Culture and sensitivity revealed Entercoccus Faecales sensitive to ampicillin , vancomycin and linezolid. Patient was initially started on Rocephin, then changed to Macrobid. Once sensitivity was available, patient was initiated on amoxicillin TID to be continued until 10/02. Continue to monitor closely for signs of further infection. High risk in light of self catheterizations. Will recheck CBC on 09/30 to monitor blood counts. Dementia, chronic. * Continue care per psychiatric team. Continue to provide safe and supportive environment and encourage floor activities. Sleeping improved with addition of trazodone at night. Hypertension, chronic. * Blood pressure noted to be elevated with systolic >150's during afternoon and evening hours. Will increase Norvasc from 7.5mg to 10mg daily and continue to monitor closely. Continue Lasix 20mg, metoprolol and lisinopril 20mg daily. Monitor for signs of hypotension and orthostasis. Will adjust diet to cardiac diet with 2g sodium restriction. Anemia, present on admission. * Hemoglobin was slightly low on admission at 13.4. Will monitor periodically throughout admission. Recheck CBC on 09/30 to monitor blood counts. Hyponatremia, RESOLVED. * BMP today showed sodium 134. Continue 2000mL fluid restriction and recheck BMP on 09/30 to monitor electrolytes and renal function. History of BPH with occasional self catheterizing, chronic. 09/27/16 18:01 Continues to have issues with sleep. Increase Trazodone to 100mg PO QHS
[2016-09-27] MEDS: ESCITALOPRAM 10 MG TABLET PO SCH (20:15)
[2016-09-27] MEDS: RisperiDONE 0.5 MG TABLET PO SCH (20:16)
[2016-09-27] MEDS: TRAZODONE 50 MG TABLET PO SCH (20:16)
[2016-09-28] MEDS: IBUPROFEN 200 MG TABLET PO PRN (03:50)
[2016-09-28] MEDS: AMOXICILLIN 500 MG CAPSULE PO SCH ×4 (05:36→21:15)
[2016-09-28] MEDS: FUROSEMIDE 20 MG TABLET PO SCH (08:17)
[2016-09-28] MEDS: NAMZARIC PO SCH (08:18)
[2016-09-28] MEDS: AMLODIPINE 10 MG TABLET PO SCH (08:19)
[2016-09-28] MEDS: LISINOPRIL 20 MG TABLET PO SCH (08:19)
--- NOTE | 2016-09-28 13:42 | Neuropsych Progress Note ---
[facility] Subjective Date: 09/28/16 - Sujective/Severity of Illness Medications: Acetaminophen (Tylenol) 500 mg PO Q4H PRN PRN Reason: P Last Admin: 09/26/16 21:38 Dose: 500 mg Al Hydroxide/Mg Hydroxide (Maalox Plus) 30 ml PO Q4H PRN PRN Reason: Indigestion Last Admin: 09/25/16 15:06 Dose: 30 ml Amlodipine Besylate (Norvasc) 10 mg PO DAILY [facility] Last Admin: 09/28/16 08:19 Dose: 10 mg Amoxicillin () 500 mg PO 06,14, [facility] Stop: 10/02/16 23:59 Last Admin: 09/28/16 05:36 Dose: 500 mg Bisacodyl (Dulcolax) 5 mg PO DAILY PRN PRN Reason: Constipation Escitalopram Oxalate (Lexapro) 10 mg PO [facility] Last Admin: 09/27/16 20:15 Dose: 10 mg Furosemide (Lasix) 20 mg PO DAILY [facility] Last Admin: 09/28/16 08:17 Dose: 20 mg Haloperidol (Haldol) 0.5 mg PO Q6H PRN PRN Reason: Extreme agitation Haloperidol Lactate (Haldol) 0.5 mg IM Q6H PRN PRN Reason: Extreme agitation Ibuprofen (Motrin) 200 mg PO Q4H PRN PRN Reason: P Last Admin: 09/28/16 03:50 Dose: 200 mg Lisinopril (Prinivil) 20 mg PO DAILY [facility] Last Admin: 09/28/16 08:19 Dose: 20 mg Lorazepam (Ativan Inj) 0.5 mg IM Q6H PRN PRN Reason: Extreme agitation Lorazepam (Ativan) 0.5 mg PO Q6H PRN PRN Reason: Extreme agitation Last Admin: 09/27/16 11:01 Dose: 0.5 mg Lorazepam (Ativan Intensol) 0.5 mg SL Q6H PRN Last Admin: 09/24/16 04:02 Dose: 0.5 mg Metoprolol Tartrate (Lopressor) 12.5 mg PO WB [facility] Last Admin: 09/28/16 08:17 Dose: 12.5 mg Pom Namzaric 28/10 1 cap PO QAM [facility] Last Admin: 09/28/16 08:18 Dose: 1 cap Risperidone (Risperdal) 0.5 mg PO [facility] Last Admin: 09/27/16 20:16 Dose: 0.5 mg Risperidone (Risperdal) 0.25 mg PO DAILY [facility] Last Admin: 09/28/16 08:19 Dose: 0.25 mg Trazodone HCl (Desyrel) 100 mg PO [facility] Last Admin: 09/27/16 20:16 Dose: 100 mg Subjective: Pt seen and chart examined. Nursing reports pt is doing well. Slept better last night. No behaviors noted. On face to face the pt states he is doing well. His mood is stable. He denies any pain. Tolerating meds. Voices no concerns at this time Start Time: 11:00 Stop Time: 11:15 Mental Status Exam Vitals: Last Vital Signs Temp 98.6 F 09/28/16 08:16 Pulse 78 09/28/16 08:16 Resp 18 09/28/16 08:16 BP 137/66 09/28/16 08:16 Pulse Ox 96 09/28/16 08:16 Height: 1.65 m Weight: 89.2 kg - Mental Status Exam Muscle Strength/Tone: Normal Dressing: Casual Grooming: Good Attitude: Cooperative Motor Activity: Retardation Eye Contact: Fair Speech: Slowed Volume: Soft Rhythm: Appropriate Rhythm Orientation: Oriented to person, Oriented to time Mood: Neutral Rate of Thoughts: Delayed Thought Organization: [place] Associations: Intact Abstract Reasoning: Poor abstract reasoning Thought Content: Normal Perception/Psychotic: Perception Normal Language: Naming Impaired Fund of Knowledge: Poor fund of knowledge Memory: Poor-immediate, Poor-recent Suicidal Ideation: None Homicidal Ideation: None Insight: Poor Judgement: Poor Impulse Control: Poor - Laboratory Result Diagrams: 09/27/16 05:14 Assessment and Plan (1) Major neurocognitive disorder due to Alzheimer's disease, probable, with behavioral disturbance Current visit: Yes Status: Acute Hospital Course Summary Disclaimer: The visit summary below is not to be considered part of the above Progress Note. Hospital Course: 09/24/16- Initial consult Impression Acute UTI Recent hyponatremia-resolved Dementia with behaviors Hypertension. BPH with chronic retention Plan Agree with admission to [facility] under the care of Dr. Brown for further psychiatric evaluation and treatment. Will continue with current antimicrobial coverage, Macrobid 100 milligrams twice a day for 4 additional days, and date 8/19/17. Hyponatremia appears to be resolved. Sodium today is 134. Will discontinue fluid restriction and periodically monitor sodium level. Continue on current regimen for Hypertension. Lopressor 12.5 milligrams daily, lisinopril 20 milligrams daily, Norvasc 7.5 milligrams daily. Continue with Lasix 20 milligrams daily for gentle diuresis. Continue with scheduled straight catheterization 4 times a day. Encourage patient to participate in unit activities and provide a safe environment. Will recheck a BMP on Wednesday 09/27 to monitor for further hyponatremia. Appreciate medical consultation. At time of discharge medical care will return to primary care provider, 09/24/16 16:48 Risperdal 0.25mg PO BID I have independently evaluated and examined this patient. I reviewed the chart, the patient's history, and the SCIENTIFIC INVESTIGATOR/PA's documented findings as above. We discussed and formulated the assessment and plan as above with additions as below: Mr. Hernandez was seen with his late this afternoon. The patient was talkative and pleasant. He denied pain or other acute symptoms including any current urinary difficulty other than chronic retention for which he straight catheters. He has been afebrile and denied dyspnea or pain. The patient was alert and cooperative although required some guidance to stay on track. Respirations nonlabored with clear breath sounds. Sensation intact to light touch 4 extremities. Motor tone normal, no tremors present. Blood pressure modestly elevated once this afternoon-will continue monitoring. Enterococcus best treated with either ampicillin/amoxicillin or vancomycin- review of culture indicate sensitivity to ampicillin and subsequently antibiotic has been converted to amoxicillin 3 times daily for anticipated five- day course. 09/25/16 18:08 Pt continues to have issues with sleep. Will start Trazodone 50mg PO QHS 09/26/16 19:08 Increase HS Risperdal to 0.5mg 09/27/16 11:12 UTI, acute. * Culture and sensitivity revealed Entercoccus Faecales sensitive to ampicillin , vancomycin and linezolid. Patient was initially started on Rocephin, then changed to Macrobid. Once sensitivity was available, patient was initiated on amoxicillin TID to be continued until 10/02. Continue to monitor closely for signs of further infection. High risk in light of self catheterizations. Will recheck CBC on 09/30 to monitor blood counts. Dementia, chronic. * Continue care per psychiatric team. Continue to provide safe and supportive environment and encourage floor activities. Sleeping improved with addition of trazodone at night. Hypertension, chronic. * Blood pressure noted to be elevated with systolic >150's during afternoon and evening hours. Will increase Norvasc from 7.5mg to 10mg daily and continue to monitor closely. Continue Lasix 20mg, metoprolol and lisinopril 20mg daily. Monitor for signs of hypotension and orthostasis. Will adjust diet to cardiac diet with 2g sodium restriction. Anemia, present on admission. * Hemoglobin was slightly low on admission at 13.4. Will monitor periodically throughout admission. Recheck CBC on 09/30 to monitor blood counts. Hyponatremia, RESOLVED. * BMP today showed sodium 134. Continue 2000mL fluid restriction and recheck BMP on 09/30 to monitor electrolytes and renal function. History of BPH with occasional self catheterizing, chronic. 09/27/16 18:01 Continues to have issues with sleep. Increase Trazodone to 100mg PO QHS 09/28/16 13:41 Pt improving. Sleeping better. Continue current care
[2016-09-28] MEDS: TRAZODONE 50 MG TABLET PO SCH (20:22)
[2016-09-28] MEDS: ESCITALOPRAM 10 MG TABLET PO SCH (20:23)
[2016-09-28] MEDS: RisperiDONE 0.5 MG TABLET PO SCH (20:23)
[2016-09-29] MEDS: AMOXICILLIN 500 MG CAPSULE PO SCH ×3 (05:25→21:26)
[2016-09-29] MEDS: FUROSEMIDE 20 MG TABLET PO SCH (09:20)
[2016-09-29] MEDS: NAMZARIC PO SCH (09:20)
[2016-09-29] MEDS: AMLODIPINE 10 MG TABLET PO SCH (09:22)
[2016-09-29] MEDS: LISINOPRIL 20 MG TABLET PO SCH (09:23)
[2016-09-29] MEDS: QUETIAPINE 50 MG TABLET PO SCH ×2 (12:06→21:26)
--- NOTE | 2016-09-29 17:08 | Neuropsych Progress Note ---
[facility] Subjective Date: 09/29/16 - Sujective/Severity of Illness Medications: Acetaminophen (Tylenol) 500 mg PO Q4H PRN PRN Reason: P Last Admin: 09/26/16 21:38 Dose: 500 mg Al Hydroxide/Mg Hydroxide (Maalox Plus) 30 ml PO Q4H PRN PRN Reason: Indigestion Last Admin: 09/25/16 15:06 Dose: 30 ml Amlodipine Besylate (Norvasc) 10 mg PO DAILY [facility] Last Admin: 09/29/16 09:22 Dose: 10 mg Amoxicillin () 500 mg PO ,, [facility] Stop: 10/02/16 23:59 Last Admin: 09/29/16 14:07 Dose: 500 mg Bisacodyl (Dulcolax) 5 mg PO DAILY PRN PRN Reason: Constipation Escitalopram Oxalate (Lexapro) 10 mg PO HS [facility] Last Admin: 09/28/16 20:23 Dose: 10 mg Furosemide (Lasix) 20 mg PO DAILY [facility] Last Admin: 09/29/16 09:20 Dose: 20 mg Haloperidol (Haldol) 0.5 mg PO Q6H PRN PRN Reason: Extreme agitation Haloperidol Lactate (Haldol) 0.5 mg IM Q6H PRN PRN Reason: Extreme agitation Ibuprofen (Motrin) 200 mg PO Q4H PRN PRN Reason: P Last Admin: 09/28/16 03:50 Dose: 200 mg Lisinopril (Prinivil) 20 mg PO DAILY [facility] Last Admin: 09/29/16 09:23 Dose: 20 mg Lorazepam (Ativan Inj) 0.5 mg IM Q6H PRN PRN Reason: Extreme agitation Lorazepam (Ativan) 0.5 mg PO Q6H PRN PRN Reason: Extreme agitation Last Admin: 09/27/16 11:01 Dose: 0.5 mg Lorazepam (Ativan Intensol) 0.5 mg SL Q6H PRN Last Admin: 09/24/16 04:02 Dose: 0.5 mg Metoprolol Tartrate (Lopressor) 12.5 mg PO WB [facility] Last Admin: 09/29/16 09:19 Dose: 12.5 mg Pom Namzaric /10 1 cap PO QAM [facility] Last Admin: 09/29/16 09:20 Dose: 1 cap Quetiapine Fumarate (Seroquel) 50 mg PO [facility] Last Admin: 09/29/16 12:06 Dose: Not Given Trazodone HCl (Desyrel) 100 mg PO [facility] Last Admin: 09/28/16 20:22 Dose: 100 mg Subjective: Pt seen and chart examined. Nursing reports pt is doing well. Slept well until 0300 and then woke up for the rest of the day. On face to face the pt states he is doing well. Mood stable. Denies any psychosis. Tolerating meds Start Time: 11:00 Stop Time: 11:15 Mental Status Exam Vitals: Last Vital Signs Temp 98.5 F 09/29/16 16:18 Pulse 63 09/29/16 16:18 Resp 17 09/29/16 16:18 BP 131/70 09/29/16 16:18 Pulse Ox 96 09/29/16 16:18 Height: 1.65 m Weight: 89.2 kg - Mental Status Exam Muscle Strength/Tone: Normal Dressing: Casual Grooming: Good Attitude: Cooperative Motor Activity: Retardation Eye Contact: Fair Speech: Slowed Volume: Soft Rhythm: Appropriate Rhythm Orientation: Oriented to person, Oriented to time Mood: Neutral Rate of Thoughts: Delayed Thought Organization: [place] Associations: Intact Abstract Reasoning: Poor abstract reasoning Thought Content: Normal Perception/Psychotic: Perception Normal Language: Naming Impaired Fund of Knowledge: Poor fund of knowledge Memory: Poor-immediate, Poor-recent Suicidal Ideation: None Homicidal Ideation: None Insight: Poor Judgement: Poor Impulse Control: Poor - Laboratory Result Diagrams: 09/27/16 05:14 Assessment and Plan (1) Major neurocognitive disorder due to Alzheimer's disease, probable, with behavioral disturbance Current visit: Yes Status: Acute Hospital Course Summary Disclaimer: The visit summary below is not to be considered part of the above Progress Note. Hospital Course: 09/24/16- Initial consult Impression Acute UTI Recent hyponatremia-resolved Dementia with behaviors Hypertension. BPH with chronic retention Plan Agree with admission to [facility] under the care of Dr. Brown for further psychiatric evaluation and treatment. Will continue with current antimicrobial coverage, Macrobid 100 milligrams twice a day for 4 additional days, and date 09/28/16. Hyponatremia appears to be resolved. Sodium today is 134. Will discontinue fluid restriction and periodically monitor sodium level. Continue on current regimen for Hypertension. Lopressor 12.5 milligrams daily, lisinopril 20 milligrams daily, Norvasc 7.5 milligrams daily. Continue with Lasix 20 milligrams daily for gentle diuresis. Continue with scheduled straight catheterization 4 times a day. Encourage patient to participate in unit activities and provide a safe environment. Will recheck a BMP on Wednesday 09/27 to monitor for further hyponatremia. Appreciate medical consultation. At time of discharge medical care will return to primary care provider, 09/24/16 16:48 Risperdal 0.25mg PO BID I have independently evaluated and examined this patient. I reviewed the chart, the patient's history, and the OCEANOGRAPHER GEOLOGICAL/PA's documented findings as above. We discussed and formulated the assessment and plan as above with additions as below: Mr. Hernandez was seen with his late this afternoon. The patient was talkative and pleasant. He denied pain or other acute symptoms including any current urinary difficulty other than chronic retention for which he straight catheters. He has been afebrile and denied dyspnea or pain. The patient was alert and cooperative although required some guidance to stay on track. Respirations nonlabored with clear breath sounds. Sensation intact to light touch 4 extremities. Motor tone normal, no tremors present. Blood pressure modestly elevated once this afternoon-will continue monitoring. Enterococcus best treated with either ampicillin/amoxicillin or vancomycin- review of culture indicate sensitivity to ampicillin and subsequently antibiotic has been converted to amoxicillin 3 times daily for anticipated five- day course. 09/25/16 18:08 Pt continues to have issues with sleep. Will start Trazodone 50mg PO QHS 09/26/16 19:08 Increase HS Risperdal to 0.5mg 09/27/16 11:12 UTI, acute. * Culture and sensitivity revealed Entercoccus Faecales sensitive to ampicillin , vancomycin and linezolid. Patient was initially started on Rocephin, then changed to Macrobid. Once sensitivity was available, patient was initiated on amoxicillin TID to be continued until 10/02. Continue to monitor closely for signs of further infection. High risk in light of self catheterizations. Will recheck CBC on 09/30 to monitor blood counts. Dementia, chronic. * Continue care per psychiatric team. Continue to provide safe and supportive environment and encourage floor activities. Sleeping improved with addition of trazodone at night. Hypertension, chronic. * Blood pressure noted to be elevated with systolic >150's during afternoon and evening hours. Will increase Norvasc from 7.5mg to 10mg daily and continue to monitor closely. Continue Lasix 20mg, metoprolol and lisinopril 20mg daily. Monitor for signs of hypotension and orthostasis. Will adjust diet to cardiac diet with 2g sodium restriction. Anemia, present on admission. * Hemoglobin was slightly low on admission at 13.4. Will monitor periodically throughout admission. Recheck CBC on 09/30 to monitor blood counts. Hyponatremia, RESOLVED. * BMP today showed sodium 134. Continue 2000mL fluid restriction and recheck BMP on 09/30 to monitor electrolytes and renal function. History of BPH with occasional self catheterizing, chronic. 09/27/16 18:01 Continues to have issues with sleep. Increase Trazodone to 100mg PO QHS 09/28/16 13:41 Pt improving. Sleeping better. Continue current care 09/29/16 17:07 Continues to have some issues with sleep. D/C Trazodone and Risperdal. Seroquel 50mg HS
[2016-09-29] MEDS: ESCITALOPRAM 10 MG TABLET PO SCH (21:24)
[2016-09-30] MEDS: ACETAMINOPHEN 500 MG TABLET PO PRN (04:15)
[2016-09-30] MEDS: AMOXICILLIN 500 MG CAPSULE PO SCH ×3 (05:39→21:24)
[2016-09-30] MEDS: FUROSEMIDE 20 MG TABLET PO SCH (08:20)
[2016-09-30] MEDS: LISINOPRIL 20 MG TABLET PO SCH (08:21)
[2016-09-30] MEDS: NAMZARIC PO SCH (08:21)
[2016-09-30] MEDS: AMLODIPINE 10 MG TABLET PO SCH (08:22)
--- NOTE | 2016-09-30 18:13 | Neuropsych Progress Note ---
[facility] Subjective Date: 09/30/16 - Sujective/Severity of Illness Medications: Acetaminophen (Tylenol) 500 mg PO Q4H PRN PRN Reason: P Last Admin: 09/30/16 04:15 Dose: 500 mg Al Hydroxide/Mg Hydroxide (Maalox Plus) 30 ml PO Q4H PRN PRN Reason: Indigestion Last Admin: 09/25/16 15:06 Dose: 30 ml Amlodipine Besylate (Norvasc) 10 mg PO DAILY [facility] Last Admin: 09/30/16 08:22 Dose: 10 mg Amoxicillin () 500 mg PO ,, [facility] Stop: 10/02/16 23:59 Last Admin: 09/30/16 14:32 Dose: 500 mg Bisacodyl (Dulcolax) 5 mg PO DAILY PRN PRN Reason: Constipation Escitalopram Oxalate (Lexapro) 10 mg PO [facility] Last Admin: 09/29/16 21:24 Dose: 10 mg Furosemide (Lasix) 20 mg PO DAILY [facility] Last Admin: 09/30/16 08:20 Dose: 20 mg Haloperidol (Haldol) 0.5 mg PO Q6H PRN PRN Reason: Extreme agitation Haloperidol Lactate (Haldol) 0.5 mg IM Q6H PRN PRN Reason: Extreme agitation Ibuprofen (Motrin) 200 mg PO Q4H PRN PRN Reason: P Last Admin: 09/28/16 03:50 Dose: 200 mg Lisinopril (Prinivil) 20 mg PO DAILY [facility] Last Admin: 09/30/16 08:21 Dose: 20 mg Lorazepam (Ativan Inj) 0.5 mg IM Q6H PRN PRN Reason: Extreme agitation Lorazepam (Ativan) 0.5 mg PO Q6H PRN PRN Reason: Extreme agitation Last Admin: 09/27/16 11:01 Dose: 0.5 mg Lorazepam (Ativan Intensol) 0.5 mg SL Q6H PRN Last Admin: 09/24/16 04:02 Dose: 0.5 mg Metoprolol Tartrate (Lopressor) 12.5 mg PO WB [facility] Last Admin: 09/30/16 08:19 Dose: 12.5 mg Pom Namzaric 28/10 1 cap PO QAM [facility] Last Admin: 09/30/16 08:21 Dose: 1 cap Quetiapine Fumarate (Seroquel) 75 mg PO HS [facility] Subjective: Pt seen and chart examined. Nursing reports pt slept until 0400 today. They report he was on the call light when he awoke. No behaviors noted. On face to face the pt states he is doing well. he is pleasant but confused. he voices no concerns. states they are looking at NH placement. Tolerating meds Start Time: 17:00 Stop Time: 17:15 Mental Status Exam Vitals: Last Vital Signs Temp 98.2 F 09/30/16 16:00 Pulse 65 09/30/16 16:00 Resp 20 09/30/16 16:00 BP 158/71 H 09/30/16 16:00 Pulse Ox 99 09/30/16 16:00 Height: 1.65 m Weight: 89.2 kg - Mental Status Exam Muscle Strength/Tone: Normal Dressing: Casual Grooming: Good Attitude: Cooperative Motor Activity: Retardation Eye Contact: Fair Speech: Slowed Volume: Soft Rhythm: Appropriate Rhythm Orientation: Oriented to person, Oriented to time Mood: Neutral Rate of Thoughts: Delayed Thought Organization: [place] Associations: Intact Abstract Reasoning: Poor abstract reasoning Thought Content: Normal Perception/Psychotic: Perception Normal Language: Naming Impaired Fund of Knowledge: Poor fund of knowledge Memory: Poor-immediate, Poor-recent Suicidal Ideation: None Homicidal Ideation: None Insight: Poor Judgement: Poor Impulse Control: Poor - Laboratory Result Diagrams: 09/30/16 05:14 09/30/16 05:14 Laboratory Results - last 24 hr 09/30/16 09/30/16 05:14 05:14 WBC 5.2 RBC 3.67 L Hgb 11.9 L Hct 35.9 L MCV 97.8 MCH 32.4 MCHC 33.1 RDW Std Deviation 45.6 Plt Count 195 MPV 9.6 Immature Gran % (Auto) 0.4 Neut % (Auto) 67.7 H Lymph % (Auto) 17.5 L [place] % (Auto) 10.0 H Eos % (Auto) 3.8 Baso % (Auto) 0.6 Neut # 3.5 Lymph # 0.9 L [place] # 0.5 Eos # 0.2 Baso # 0.0 Abs Immat Gran (auto) 0.02 Turbidity < 20 Sodium 136 Potassium 4.2 Chloride 101 Carbon Dioxide 27 Anion Gap 8 BUN 28.0 H Creatinine 1.0 GFR Calculation 74 BUN/Creatinine Ratio 28 H Glucose 109 Calculated Osmolality 269 Calcium 8.7 Icterus Index < 2 Specimen Hemolysis < 15 Assessment and Plan (1) Major neurocognitive disorder due to Alzheimer's disease, probable, with behavioral disturbance Current visit: Yes Status: Acute Hospital Course Summary Disclaimer: The visit summary below is not to be considered part of the above Progress Note. Hospital Course: 09/24/16- Initial consult Impression Acute UTI Recent hyponatremia-resolved Dementia with behaviors Hypertension. BPH with chronic retention Plan Agree with admission to [facility] under the care of Dr. Brown for further psychiatric evaluation and treatment. Will continue with current antimicrobial coverage, Macrobid 100 milligrams twice a day for 4 additional days, and date 09/28/16. Hyponatremia appears to be resolved. Sodium today is 134. Will discontinue fluid restriction and periodically monitor sodium level. Continue on current regimen for Hypertension. Lopressor 12.5 milligrams daily, lisinopril 20 milligrams daily, Norvasc 7.5 milligrams daily. Continue with Lasix 20 milligrams daily for gentle diuresis. Continue with scheduled straight catheterization 4 times a day. Encourage patient to participate in unit activities and provide a safe environment. Will recheck a BMP on Wednesday 09/27 to monitor for further hyponatremia. Appreciate medical consultation. At time of discharge medical care will return to primary care provider, 09/24/16 16:48 Risperdal 0.25mg PO BID I have independently evaluated and examined this patient. I reviewed the chart, the patient's history, and the FEED CRUSHER OPERATOR/PA's documented findings as above. We discussed and formulated the assessment and plan as above with additions as below: Mr. Hernandez was seen with his late this afternoon. The patient was talkative and pleasant. He denied pain or other acute symptoms including any current urinary difficulty other than chronic retention for which he straight catheters. He has been afebrile and denied dyspnea or pain. The patient was alert and cooperative although required some guidance to stay on track. Respirations nonlabored with clear breath sounds. Sensation intact to light touch 4 extremities. Motor tone normal, no tremors present. Blood pressure modestly elevated once this afternoon-will continue monitoring. Enterococcus best treated with either ampicillin/amoxicillin or vancomycin- review of culture indicate sensitivity to ampicillin and subsequently antibiotic has been converted to amoxicillin 3 times daily for anticipated five- day course. 09/25/16 18:08 Pt continues to have issues with sleep. Will start Trazodone 50mg PO QHS 09/26/16 19:08 Increase HS Risperdal to 0.5mg 09/27/16 11:12 UTI, acute. * Culture and sensitivity revealed Entercoccus Faecales sensitive to ampicillin , vancomycin and linezolid. Patient was initially started on Rocephin, then changed to Macrobid. Once sensitivity was available, patient was initiated on amoxicillin TID to be continued until 10/02. Continue to monitor closely for signs of further infection. High risk in light of self catheterizations. Will recheck CBC on 09/30 to monitor blood counts. Dementia, chronic. * Continue care per psychiatric team. Continue to provide safe and supportive environment and encourage floor activities. Sleeping improved with addition of trazodone at night. Hypertension, chronic. * Blood pressure noted to be elevated with systolic >150's during afternoon and evening hours. Will increase Norvasc from 7.5mg to 10mg daily and continue to monitor closely. Continue Lasix 20mg, metoprolol and lisinopril 20mg daily. Monitor for signs of hypotension and orthostasis. Will adjust diet to cardiac diet with 2g sodium restriction. Anemia, present on admission. * Hemoglobin was slightly low on admission at 13.4. Will monitor periodically throughout admission. Recheck CBC on 09/30 to monitor blood counts. Hyponatremia, RESOLVED. * BMP today showed sodium 134. Continue 2000mL fluid restriction and recheck BMP on 09/30 to monitor electrolytes and renal function. History of BPH with occasional self catheterizing, chronic. 09/27/16 18:01 Continues to have issues with sleep. Increase Trazodone to 100mg PO QHS 09/28/16 13:41 Pt improving. Sleeping better. Continue current care 09/29/16 17:07 Continues to have some issues with sleep. D/C Trazodone and Risperdal. Seroquel 50mg HS 09/30/16 18:13 PT continues to have issues with sleep and can be intrusive in the AM. Increase Seroquel to 75mg at HS
[2016-09-30] MEDS: ESCITALOPRAM 10 MG TABLET PO SCH (21:24)
[2016-09-30] MEDS: QUETIAPINE 50 MG TABLET PO SCH (21:25)
[2016-10-01] MEDS: AMOXICILLIN 500 MG CAPSULE PO SCH ×3 (05:44→19:49)
[2016-10-01] MEDS: LISINOPRIL 20 MG TABLET PO SCH (08:10)
[2016-10-01] MEDS: FUROSEMIDE 20 MG TABLET PO SCH (08:11)
[2016-10-01] MEDS: AMLODIPINE 10 MG TABLET PO SCH (08:11)
[2016-10-01] MEDS: NAMZARIC PO SCH (08:13)
--- NOTE | 2016-10-01 10:33 | Progress Note ---
<Seema Lara - Last Filed: 10/01/16 10:29> Subjective: Elijah was eating breakfast. He was pleasant and cooperative. He introduced himself as "Wild Elijah". He denied any concerns - no SOA, cough, chest pain, abdominal pain or GI complaints. However, he doesn't care for the sodium restriction and would like to eat more giles. Requires straight cath to drain bladder - had 1200 ml last night (this is a chronic finding). He uses his call light frequently and was restless last night. Objective Vital signs: Temperature 97.8 F 10/01/16 08:00 Pulse Rate 70 10/01/16 08:00 Respiratory Rate 18 10/01/16 08:00 Blood Pressure 158/89 H 10/01/16 08:00 Pulse Oximetry 95 10/01/16 08:00 Oxygen Delivery Method Room Air Height/Weight/BMI: Height 1.65 m Weight 65.5 kg Body Mass Index 32.7 - Constitutional Present: no acute distress, well nourished, well developed - Routine HEENT Exam ENT: Present: mucous membranes moist, oropharynx clear - Routine Respiratory Exam Present: CTA bilaterally - Routine Cardiovascular Exam Present: RRR, S1, S2 - Routine Abdominal Exam Present: soft, normoactive bowel sounds, non distended, non tender - Routine Extremities Exam Present: no edema, pulses intact, normal capillary refill - Routine Musculoskeletal Exam Musculoskeletal: Present: moving extremities well - Routine Skin Exam Present: intact, dry, warm - Routine Neurological Exam Present: alert, normal speech - Routine Psychiatric Exam Present: normal affect Results - Labs CBC & Chem 7: 09/30/16 05:14 09/30/16 05:14 Assessment and Plan (1) UTI (urinary tract infection) Problem details: Complicated by his history of self straight catheterization for benign prostatic hypertrophy. Enterococcus on Urine Culture from 09/18/16. Current visit: No Status: Acute (2) Dementia Current visit: No Status: Chronic Resuscitation Status: Do Not Resuscitate Assessment and Plan: ASSESSMENT Acute UTI with enterococcus - Amoxicillin Recent hyponatremia-resolved Dementia with behaviors Hypertension. BPH with chronic retention PLAN BP remains high - add Lisinopril 10 mg HS to his current regimen (which already includes Lisinopril 20 mg daily). Consider lifting sodium restriction - may need to discuss with family about risks and benefits vs. quality of life. Labs from 09/30/16 were stable. Tomorrow will be his last day of Amoxicllin for Enterococcus UTI. Sepsis Assessment - Evaluation Sepsis screening result: No Definite Risk Hospital Course Summary Disclaimer: The visit summary below is not to be considered part of the above Progress Note. Hospital Course: 09/24/16- Initial consult Impression Acute UTI Recent hyponatremia-resolved Dementia with behaviors Hypertension. BPH with chronic retention Plan Agree with admission to [facility] under the care of Dr. Brown for further psychiatric evaluation and treatment. Will continue with current antimicrobial coverage, Macrobid 100 milligrams twice a day for 4 additional days, and date 09/28/16. Hyponatremia appears to be resolved. Sodium today is 134. Will discontinue fluid restriction and periodically monitor sodium level. Continue on current regimen for Hypertension. Lopressor 12.5 milligrams daily, lisinopril 20 milligrams daily, Norvasc 7.5 milligrams daily. Continue with Lasix 20 milligrams daily for gentle diuresis. Continue with scheduled straight catheterization 4 times a day. Encourage patient to participate in unit activities and provide a safe environment. Will recheck a BMP on Wednesday 09/27 to monitor for further hyponatremia. Appreciate medical consultation. At time of discharge medical care will return to primary care provider, 09/24/16 16:48 Risperdal 0.25mg PO BID I have independently evaluated and examined this patient. I reviewed the chart, the patient's history, and the TAX APPRAISER/PA's documented findings as above. We discussed and formulated the assessment and plan as above with additions as below: Mr. Hernandez was seen with his late this afternoon. The patient was talkative and pleasant. He denied pain or other acute symptoms including any current urinary difficulty other than chronic retention for which he straight catheters. He has been afebrile and denied dyspnea or pain. The patient was alert and cooperative although required some guidance to stay on track. Respirations nonlabored with clear breath sounds. Sensation intact to light touch 4 extremities. Motor tone normal, no tremors present. Blood pressure modestly elevated once this afternoon-will continue monitoring. Enterococcus best treated with either ampicillin/amoxicillin or vancomycin- review of culture indicate sensitivity to ampicillin and subsequently antibiotic has been converted to amoxicillin 3 times daily for anticipated five- day course. 09/25/16 18:08 Pt continues to have issues with sleep. Will start Trazodone 50mg PO QHS 09/26/16 19:08 Increase HS Risperdal to 0.5mg 09/27/16 UTI, acute. * Culture and sensitivity revealed Entercoccus Faecales sensitive to ampicillin , vancomycin and linezolid. Patient was initially started on Rocephin, then changed to Macrobid. Once sensitivity was available, patient was initiated on amoxicillin TID to be continued until 10/02. Continue to monitor closely for signs of further infection. High risk in light of self catheterizations. Will recheck CBC on 09/30 to monitor blood counts. Dementia, chronic. * Continue care per psychiatric team. Continue to provide safe and supportive environment and encourage floor activities. Sleeping improved with addition of trazodone at night. Hypertension, chronic. * Blood pressure noted to be elevated with systolic >150's during afternoon and evening hours. Will increase Norvasc from 7.5mg to 10mg daily and continue to monitor closely. Continue Lasix 20mg, metoprolol and lisinopril 20mg daily. Monitor for signs of hypotension and orthostasis. Will adjust diet to cardiac diet with 2g sodium restriction. Anemia, present on admission. * Hemoglobin was slightly low on admission at 13.4. Will monitor periodically throughout admission. Recheck CBC on 09/30 to monitor blood counts. Hyponatremia, RESOLVED. * BMP today showed sodium 134. Continue 2000mL fluid restriction and recheck BMP on 09/30 to monitor electrolytes and renal function. History of BPH with occasional self catheterizing, chronic. 09/27/16 18:01 Continues to have issues with sleep. Increase Trazodone to 100mg PO QHS 09/28/16 13:41 Pt improving. Sleeping better. Continue current care 09/29/16 17:07 Continues to have some issues with sleep. D/C Trazodone and Risperdal. Seroquel 50mg HS 09/30/16 18:13 PT continues to have issues with sleep and can be intrusive in the AM. Increase Seroquel to 75mg at HS 10/01/16 BP remains high - add Lisinopril 10 mg HS to his current regimen (which already includes Lisinopril 20 mg daily). Consider lifting sodium restriction - may need to discuss with family about risks and benefits vs. quality of life. Labs from 09/30/16 were stable. Tomorrow will be his last day of Amoxicllin for Enterococcus UTI. <Tamy Sparks - Last Filed: 10/02/16 16:30> Objective Vital signs: Temperature 98.6 F 10/02/16 16:28 Pulse Rate 66 10/02/16 16:28 Respiratory Rate 20 10/02/16 16:28 Blood Pressure 141/68 H 10/02/16 16:28 Pulse Oximetry 96 10/02/16 16:28 Oxygen Delivery Method Room Air Height/Weight/BMI: Height 1.65 m Weight 65.5 kg Body Mass Index 32.7 Results - Labs CBC & Chem 7: 09/30/16 05:14 09/30/16 05:14 Assessment and Plan (1) UTI (urinary tract infection) Problem details: Complicated by his history of self straight catheterization for benign prostatic hypertrophy. Enterococcus on Urine Culture from 09/18/16. Current visit: No Status: Acute (2) Dementia Current visit: No Status: Chronic Hospital Course Summary Disclaimer: The visit summary below is not to be considered part of the above Progress Note.
[2016-10-01] MEDS: ESCITALOPRAM 10 MG TABLET PO SCH (19:49)
[2016-10-01] MEDS: LISINOPRIL 10 MG TABLET PO SCH (19:49)
[2016-10-01] MEDS: QUETIAPINE 50 MG TABLET PO SCH ×2 (19:50→22:06)
--- NOTE | 2016-10-01 20:42 | Neuropsych Progress Note ---
[facility] Subjective Date: 10/01/16 - Sujective/Severity of Illness Medications: Acetaminophen (Tylenol) 500 mg PO Q4H PRN PRN Reason: P Last Admin: 09/30/16 04:15 Dose: 500 mg Al Hydroxide/Mg Hydroxide (Maalox Plus) 30 ml PO Q4H PRN PRN Reason: Indigestion Last Admin: 09/25/16 15:06 Dose: 30 ml Amlodipine Besylate (Norvasc) 10 mg PO DAILY [facility] Last Admin: 10/01/16 08:11 Dose: 10 mg Amoxicillin () 500 mg PO [facility] Stop: 10/02/16 23:59 Last Admin: 10/01/16 19:49 Dose: 500 mg Bisacodyl (Dulcolax) 5 mg PO DAILY PRN PRN Reason: Constipation Escitalopram Oxalate (Lexapro) 10 mg PO HS [facility] Last Admin: 10/01/16 19:49 Dose: 10 mg Furosemide (Lasix) 20 mg PO DAILY [facility] Last Admin: 10/01/16 08:11 Dose: 20 mg Haloperidol (Haldol) 0.5 mg PO Q6H PRN PRN Reason: Extreme agitation Haloperidol Lactate (Haldol) 0.5 mg IM Q6H PRN PRN Reason: Extreme agitation Ibuprofen (Motrin) 200 mg PO Q4H PRN PRN Reason: P Last Admin: 09/28/16 03:50 Dose: 200 mg Lisinopril (Prinivil) 20 mg PO DAILY [facility] Last Admin: 10/01/16 08:10 Dose: 20 mg Lisinopril (Prinivil) 10 mg PO [facility] Last Admin: 10/01/16 19:49 Dose: 10 mg Lorazepam (Ativan Inj) 0.5 mg IM Q6H PRN PRN Reason: Extreme agitation Lorazepam (Ativan) 0.5 mg PO Q6H PRN PRN Reason: Extreme agitation Last Admin: 09/27/16 11:01 Dose: 0.5 mg Lorazepam (Ativan Intensol) 0.5 mg SL Q6H PRN Last Admin: 09/24/16 04:02 Dose: 0.5 mg Metoprolol Tartrate (Lopressor) 12.[address] [facility] Last Admin: 10/01/16 08:11 Dose: 12.5 mg Pom Namzaric 28/10 1 cap PO QAM [facility] Last Admin: 10/01/16 08:13 Dose: 1 cap Quetiapine Fumarate (Seroquel) 100 mg PO HS [facility] Subjective: Pt seen and chart examined. Nursing reports pt is doing well. Continues to wake up at 0400 but no behaviors noted. On face to face the pt states he is doing well. His mood is stable. He is pleasant but confused. Tolerating meds. Denies pain Start Time: 17:00 Stop Time: 17:15 Mental Status Exam Vitals: Last Vital Signs Temp 98.4 F 10/01/16 16:00 Pulse 67 10/01/16 16:00 Resp 20 10/01/16 16:00 BP 149/79 H 10/01/16 16:00 Pulse Ox 98 10/01/16 16:00 Height: 1.65 m Weight: 65.5 kg - Mental Status Exam Muscle Strength/Tone: Normal Dressing: Casual Grooming: Good Attitude: Cooperative Motor Activity: Retardation Eye Contact: Fair Speech: Slowed Volume: Soft Rhythm: Appropriate Rhythm Orientation: Oriented to person, Oriented to time Mood: Neutral Rate of Thoughts: Delayed Thought Organization: [place] Associations: Intact Abstract Reasoning: Poor abstract reasoning Thought Content: Normal Perception/Psychotic: Perception Normal Language: Naming Impaired Fund of Knowledge: Poor fund of knowledge Memory: Poor-immediate, Poor-recent Suicidal Ideation: None Homicidal Ideation: None Insight: Poor Judgement: Poor Impulse Control: Poor - Laboratory Result Diagrams: 09/30/16 05:14 09/30/16 05:14 Assessment and Plan (1) Major neurocognitive disorder due to Alzheimer's disease, probable, with behavioral disturbance Current visit: Yes Status: Acute Hospital Course Summary Disclaimer: The visit summary below is not to be considered part of the above Progress Note. Hospital Course: 09/24/16- Initial consult Impression Acute UTI Recent hyponatremia-resolved Dementia with behaviors Hypertension. BPH with chronic retention Plan Agree with admission to [facility] under the care of Dr. Brown for further psychiatric evaluation and treatment. Will continue with current antimicrobial coverage, Macrobid 100 milligrams twice a day for 4 additional days, and date 09/28/16. Hyponatremia appears to be resolved. Sodium today is 134. Will discontinue fluid restriction and periodically monitor sodium level. Continue on current regimen for Hypertension. Lopressor 12.5 milligrams daily, lisinopril 20 milligrams daily, Norvasc 7.5 milligrams daily. Continue with Lasix 20 milligrams daily for gentle diuresis. Continue with scheduled straight catheterization 4 times a day. Encourage patient to participate in unit activities and provide a safe environment. Will recheck a BMP on Wednesday 09/27 to monitor for further hyponatremia. Appreciate medical consultation. At time of discharge medical care will return to primary care provider, 09/24/16 16:48 Risperdal 0.25mg PO BID I have independently evaluated and examined this patient. I reviewed the chart, the patient's history, and the REGULATORY SCIENTIST/PA's documented findings as above. We discussed and formulated the assessment and plan as above with additions as below: Mr. Hernandez was seen with his late this afternoon. The patient was talkative and pleasant. He denied pain or other acute symptoms including any current urinary difficulty other than chronic retention for which he straight catheters. He has been afebrile and denied dyspnea or pain. The patient was alert and cooperative although required some guidance to stay on track. Respirations nonlabored with clear breath sounds. Sensation intact to light touch 4 extremities. Motor tone normal, no tremors present. Blood pressure modestly elevated once this afternoon-will continue monitoring. Enterococcus best treated with either ampicillin/amoxicillin or vancomycin- review of culture indicate sensitivity to ampicillin and subsequently antibiotic has been converted to amoxicillin 3 times daily for anticipated five- day course. 09/25/16 18:08 Pt continues to have issues with sleep. Will start Trazodone 50mg PO QHS 09/26/16 19:08 Increase HS Risperdal to 0.5mg 09/27/16 UTI, acute. * Culture and sensitivity revealed Entercoccus Faecales sensitive to ampicillin , vancomycin and linezolid. Patient was initially started on Rocephin, then changed to Macrobid. Once sensitivity was available, patient was initiated on amoxicillin TID to be continued until 10/02. Continue to monitor closely for signs of further infection. High risk in light of self catheterizations. Will recheck CBC on 09/30 to monitor blood counts. Dementia, chronic. * Continue care per psychiatric team. Continue to provide safe and supportive environment and encourage floor activities. Sleeping improved with addition of trazodone at night. Hypertension, chronic. * Blood pressure noted to be elevated with systolic >150's during afternoon and evening hours. Will increase Norvasc from 7.5mg to 10mg daily and continue to monitor closely. Continue Lasix 20mg, metoprolol and lisinopril 20mg daily. Monitor for signs of hypotension and orthostasis. Will adjust diet to cardiac diet with 2g sodium restriction. Anemia, present on admission. * Hemoglobin was slightly low on admission at 13.4. Will monitor periodically throughout admission. Recheck CBC on 09/30 to monitor blood counts. Hyponatremia, RESOLVED. * BMP today showed sodium 134. Continue 2000mL fluid restriction and recheck BMP on 09/30 to monitor electrolytes and renal function. History of BPH with occasional self catheterizing, chronic. 09/27/16 18:01 Continues to have issues with sleep. Increase Trazodone to 100mg PO QHS 09/28/16 13:41 Pt improving. Sleeping better. Continue current care 09/29/16 17:07 Continues to have some issues with sleep. D/C Trazodone and Risperdal. Seroquel 50mg HS 09/30/16 18:13 PT continues to have issues with sleep and can be intrusive in the AM. Increase Seroquel to 75mg at HS 10/01/16 BP remains high - add Lisinopril 10 mg HS to his current regimen (which already includes Lisinopril 20 mg daily). Consider lifting sodium restriction - may need to discuss with family about risks and benefits vs. quality of life. Labs from 09/30/16 were stable. Tomorrow will be his last day of Amoxicllin for Enterococcus UTI. 10/01/16 20:42 Increase Seroquel to 100mg at HS
[2016-10-01] MEDS: LORazepam 0.5 MG TABLET PO PRN (22:07)
[2016-10-02] MEDS: AMOXICILLIN 500 MG CAPSULE PO SCH ×3 (09:00→19:59)
[2016-10-02] MEDS: AMLODIPINE 10 MG TABLET PO SCH (09:01)
[2016-10-02] MEDS: LISINOPRIL 20 MG TABLET PO SCH (09:01)
[2016-10-02] MEDS: FUROSEMIDE 20 MG TABLET PO SCH (09:01)
[2016-10-02] MEDS: NAMZARIC PO SCH (09:03)
[2016-10-02] MEDS: QUETIAPINE 50 MG TABLET PO SCH (19:59)
[2016-10-02] MEDS: LISINOPRIL 10 MG TABLET PO SCH (19:59)
[2016-10-02] MEDS: ESCITALOPRAM 10 MG TABLET PO SCH (19:59)
--- NOTE | 2016-10-02 20:05 | Neuropsych Progress Note ---
[facility] Subjective Date: 10/02/16 - Sujective/Severity of Illness Medications: Acetaminophen (Tylenol) 500 mg PO Q4H PRN PRN Reason: P Last Admin: 09/30/16 04:15 Dose: 500 mg Al Hydroxide/Mg Hydroxide (Maalox Plus) 30 ml PO Q4H PRN PRN Reason: Indigestion Last Admin: 09/25/16 15:06 Dose: 30 ml Amlodipine Besylate (Norvasc) 10 mg PO DAILY [facility] Last Admin: 10/02/16 09:01 Dose: 10 mg Amoxicillin () 500 mg PO ,, [facility] Stop: 10/02/16 23:59 Last Admin: 10/02/16 19:59 Dose: 500 mg Bisacodyl (Dulcolax) 5 mg PO DAILY PRN PRN Reason: Constipation Escitalopram Oxalate (Lexapro) 10 mg PO HS [facility] Last Admin: 10/02/16 19:59 Dose: 10 mg Furosemide (Lasix) 20 mg PO DAILY [facility] Last Admin: 10/02/16 09:01 Dose: 20 mg Haloperidol (Haldol) 0.5 mg PO Q6H PRN PRN Reason: Extreme agitation Haloperidol Lactate (Haldol) 0.5 mg IM Q6H PRN PRN Reason: Extreme agitation Ibuprofen (Motrin) 200 mg PO Q4H PRN PRN Reason: P Last Admin: 09/28/16 03:50 Dose: 200 mg Lisinopril (Prinivil) 20 mg PO DAILY [facility] Last Admin: 10/02/16 09:01 Dose: 20 mg Lisinopril (Prinivil) 10 mg PO [facility] Last Admin: 10/02/16 19:59 Dose: 10 mg Lorazepam (Ativan Inj) 0.5 mg IM Q6H PRN PRN Reason: Extreme agitation Lorazepam (Ativan) 0.5 mg PO Q6H PRN PRN Reason: Extreme agitation Last Admin: 10/01/16 22:07 Dose: 0.5 mg Lorazepam (Ativan Intensol) 0.5 mg SL Q6H PRN Last Admin: 09/24/16 04:02 Dose: 0.5 mg Metoprolol Tartrate (Lopressor) 12.5 mg PO [facility] Last Admin: 10/02/16 09:00 Dose: 12.5 mg Pom Namzaric 28/10 1 cap PO QAM [facility] Last Admin: 10/02/16 09:03 Dose: 1 cap Quetiapine Fumarate (Seroquel) 100 mg PO HS [facility] Last Admin: 10/02/16 19:59 Dose: 100 mg Subjective: Pt seen and chart examined. Nursing reports pt is doing well. Continues to wake up at 0400 but no behaviors noted. On face to face the pt states he is doing well. He reports his mood is stable. Denies S/I. Feels safe for D/C. agrees pt is safe to go home Start Time: 17:00 Stop Time: 17:15 Mental Status Exam Vitals: Last Vital Signs Temp 98.6 F 10/02/16 16:28 Pulse 66 10/02/16 16:28 Resp 20 10/02/16 16:28 BP 141/68 H 10/02/16 16:28 Pulse Ox 96 10/02/16 16:28 Height: 1.65 m Weight: 65.5 kg - Mental Status Exam Muscle Strength/Tone: Normal Dressing: Casual Grooming: Good Attitude: Cooperative Motor Activity: Retardation Eye Contact: Fair Speech: Slowed Volume: Soft Rhythm: Appropriate Rhythm Orientation: Oriented to person, Oriented to time Mood: Neutral Rate of Thoughts: Delayed Thought Organization: [place] Associations: Intact Abstract Reasoning: Poor abstract reasoning Thought Content: Normal Perception/Psychotic: Perception Normal Language: Naming Impaired Fund of Knowledge: Poor fund of knowledge Memory: Poor-immediate, Poor-recent Suicidal Ideation: None Homicidal Ideation: None Insight: Poor Judgement: Poor Impulse Control: Poor - Laboratory Result Diagrams: 09/30/16 05:14 09/30/16 05:14 Laboratory Results - last 24 hr 10/01/16 23:03 Ur Collection Type Urine, catheter Urine Color Red Urine Clarity Turbid Urine pH 6.0 Ur Specific Gunpowder 1.025 Urine Protein 2+ A Urine Glucose (UA) Negative Urine Ketones Negative Urine Occult Blood 3+ A Urine Nitrate Negative Urine Bilirubin Negative Urine Urobilinogen 0.2 Ur Leukocyte Esterase Negative Urine RBC Tntc Urine WBC None seen Urine Bacteria None seen Ur Culture Indicated? Cult not indicated Assessment and Plan (1) Major neurocognitive disorder due to Alzheimer's disease, probable, with behavioral disturbance Current visit: Yes Status: Acute Hospital Course Summary Disclaimer: The visit summary below is not to be considered part of the above Progress Note. Hospital Course: 09/24/16- Initial consult Impression Acute UTI Recent hyponatremia-resolved Dementia with behaviors Hypertension. BPH with chronic retention Plan Agree with admission to [facility] under the care of Dr. Brown for further psychiatric evaluation and treatment. Will continue with current antimicrobial coverage, Macrobid 100 milligrams twice a day for 4 additional days, and date 09/28/16. Hyponatremia appears to be resolved. Sodium today is 134. Will discontinue fluid restriction and periodically monitor sodium level. Continue on current regimen for Hypertension. Lopressor 12.5 milligrams daily, lisinopril 20 milligrams daily, Norvasc 7.5 milligrams daily. Continue with Lasix 20 milligrams daily for gentle diuresis. Continue with scheduled straight catheterization 4 times a day. Encourage patient to participate in unit activities and provide a safe environment. Will recheck a BMP on Wednesday 09/27 to monitor for further hyponatremia. Appreciate medical consultation. At time of discharge medical care will return to primary care provider, 09/24/16 16:48 Risperdal 0.25mg PO BID I have independently evaluated and examined this patient. I reviewed the chart, the patient's history, and the ELECTRICAL DISCHARGE MACHINE OPERATOR/PA's documented findings as above. We discussed and formulated the assessment and plan as above with additions as below: Mr. Hernandez was seen with his late this afternoon. The patient was talkative and pleasant. He denied pain or other acute symptoms including any current urinary difficulty other than chronic retention for which he straight catheters. He has been afebrile and denied dyspnea or pain. The patient was alert and cooperative although required some guidance to stay on track. Respirations nonlabored with clear breath sounds. Sensation intact to light touch 4 extremities. Motor tone normal, no tremors present. Blood pressure modestly elevated once this afternoon-will continue monitoring. Enterococcus best treated with either ampicillin/amoxicillin or vancomycin- review of culture indicate sensitivity to ampicillin and subsequently antibiotic has been converted to amoxicillin 3 times daily for anticipated five- day course. 09/25/16 18:08 Pt continues to have issues with sleep. Will start Trazodone 50mg PO QHS 09/26/16 19:08 Increase HS Risperdal to 0.5mg 09/27/16 UTI, acute. * Culture and sensitivity revealed Entercoccus Faecales sensitive to ampicillin , vancomycin and linezolid. Patient was initially started on Rocephin, then changed to Macrobid. Once sensitivity was available, patient was initiated on amoxicillin TID to be continued until 10/02. Continue to monitor closely for signs of further infection. High risk in light of self catheterizations. Will recheck CBC on 09/30 to monitor blood counts. Dementia, chronic. * Continue care per psychiatric team. Continue to provide safe and supportive environment and encourage floor activities. Sleeping improved with addition of trazodone at night. Hypertension, chronic. * Blood pressure noted to be elevated with systolic >150's during afternoon and evening hours. Will increase Norvasc from 7.5mg to 10mg daily and continue to monitor closely. Continue Lasix 20mg, metoprolol and lisinopril 20mg daily. Monitor for signs of hypotension and orthostasis. Will adjust diet to cardiac diet with 2g sodium restriction. Anemia, present on admission. * Hemoglobin was slightly low on admission at 13.4. Will monitor periodically throughout admission. Recheck CBC on 09/30 to monitor blood counts. Hyponatremia, RESOLVED. * BMP today showed sodium 134. Continue 2000mL fluid restriction and recheck BMP on 09/30 to monitor electrolytes and renal function. History of BPH with occasional self catheterizing, chronic. 09/27/16 18:01 Continues to have issues with sleep. Increase Trazodone to 100mg PO QHS 09/28/16 13:41 Pt improving. Sleeping better. Continue current care 09/29/16 17:07 Continues to have some issues with sleep. D/C Trazodone and Risperdal. Seroquel 50mg HS 09/30/16 18:13 PT continues to have issues with sleep and can be intrusive in the AM. Increase Seroquel to 75mg at HS 10/01/16 BP remains high - add Lisinopril 10 mg HS to his current regimen (which already includes Lisinopril 20 mg daily). Consider lifting sodium restriction - may need to discuss with family about risks and benefits vs. quality of life. Labs from 09/30/16 were stable. Tomorrow will be his last day of Amoxicllin for Enterococcus UTI. 10/01/16 20:42 Increase Seroquel to 100mg at HS 10/02/16 20:05 Plan D/C for tomorrow
--- NOTE | 2016-10-02 20:48 | Discharge Instructions ---
Discharge Plan - Med Rec/Dispo Additional Instructions: Diagnosis: Major Neurocognitive Disorder with Behavioral Disturbance Prescriptions: New Escitalopram [Lexapro] 10 mg PO HS #30 tablet Quetiapine [Seroquel] 100 mg PO HS #30 tablet Memantine Hcl/Donepezil Hcl [Namzaric 28 Mg-10 Mg Capsule] 1 cap PO QAM #30 Discontinued Memantine HCl/Donepezil HCl [Namzaric 28 mg-10 mg Capsule] 1 cap PO QAM Melatonin 10 mg PO HS Escitalopram [Lexapro] 10 mg PO HS No Action Nitrofurantoin Monohyd/M-Cryst [Macrobid 100 mg Capsule] 100 mg PO BID Lisinopril [Prinivil] 20 mg PO DAILY Furosemide [Lasix] 20 mg PO DAILY tablet Metoprolol Tartrate [Lopressor] 12.5 mg PO WB tablet Amlodipine Besylate 7.5 mg PO DAILY #0 Silodosin [Rapaflo] 8 mg PO WS #0 Acetaminophen 500 mg PO Q4H PRN #0 PRN Reason: PAIN Ibuprofen [Advil] 200 mg PO Q4H PRN #0 PRN Reason: PAIN Nitrofurantoin. [Macrobid] 100 mg PO BID #10 capsule Bisacodyl EC Tab [Dulcolax] 5 mg PO DAILY PRN PRN Reason: Constipation Discharge Instructions/Outpatient Orders: Criteria for Antipsychotic Use Location: Determined By Patient Final Provider Discharge Instructions Location: Determined By Patient - Disposition 01 Discharged Home, Self-Care
[2016-10-03 00:29] VITALS: O2SAT 95
[2016-10-03 07:51] VITALS: BP 146/72; PULSE 85; RESP 16; TEMP 98
[2016-10-03] MEDS: FUROSEMIDE 20 MG TABLET PO SCH (08:05)
[2016-10-03] MEDS: AMLODIPINE 10 MG TABLET PO SCH (08:05)
[2016-10-03] MEDS: NAMZARIC PO SCH (08:06)
[2016-10-03] MEDS: LISINOPRIL 20 MG TABLET PO SCH (08:07)
--- NOTE | 2016-10-03 09:42 | Discharge Instructions ---
Discharge Plan - Med Rec/Dispo Referrals/Follow Up: [facility] [facility], Mental Health [Other] ([facility] does appt.'s by walk-in only. M-W 8-3:30pm, . 11-3:30 pm, and Fri. 8-2:30pm. At your first walk-in appt. ask specifically for Dr. Mauricio Brown. [facility] [address] [facility] [address] [place] [address] ) Tono Nieves MD [Family Provider] - (Dr. Camilo Nieves on 10/21/16 at 10:00 am for Hosp. follow-up. Check in at 9:45 am. . Please have BMP at that time. [address] [place] [address]) Additional Instructions: Diagnosis: Major Neurocognitive Disorder with Behavioral Disturbance. Reasons for Admission: Increased confusion, wandering, poor judgement, and impulse control. IN CASE OF PSYCHIATRIC EMERGENCY, CONTACT [facility] STAFF AT [phone] ( available 24 hrs daily). Prescriptions: New Escitalopram [Lexapro] 10 mg PO HS #30 tablet Quetiapine [Seroquel] 100 mg PO HS #30 tablet Acetaminophen [Tylenol] 500 mg PO Q4H PRN tablet PRN Reason: P Bisacodyl EC Tab [Dulcolax] 5 mg PO DAILY PRN tablet PRN Reason: Constipation Metoprolol Tartrate [Lopressor] 12.5 mg PO WB tablet Memantine Hcl/Donepezil Hcl [Namzaric 28 Mg-10 Mg Capsule] 1 cap PO QAM #30 Amlodipine [Norvasc] 10 mg PO DAILY tablet Lisinopril [Prinivil] 10 mg PO HS tablet Continue Lisinopril [Prinivil] 20 mg PO DAILY Metoprolol Tartrate [Lopressor] 12.5 mg PO WB tablet Silodosin [Rapaflo] 8 mg PO WS #0 Bisacodyl EC Tab [Dulcolax] 5 mg PO DAILY PRN PRN Reason: Constipation Ibuprofen [Advil] 200 mg PO Q4H PRN #10 PRN Reason: PAIN Discontinued Memantine HCl/Donepezil HCl [Namzaric 28 mg-10 mg Capsule] 1 cap PO QAM Nitrofurantoin Monohyd/M-Cryst [Macrobid 100 mg Capsule] 100 mg PO BID Melatonin 10 mg PO HS Furosemide [Lasix] 20 mg PO DAILY tablet Amlodipine Besylate 7.5 mg PO DAILY #0 Escitalopram [Lexapro] 10 mg PO HS Nitrofurantoin. [Macrobid] 100 mg PO BID #10 capsule No Action Acetaminophen 500 mg PO Q4H PRN #0 PRN Reason: PAIN Discharge Instructions/Outpatient Orders: Criteria for Antipsychotic Use Location: Determined By Patient Final Provider Discharge Instructions Location: Determined By Patient
--- NOTE | 2016-10-10 17:52 | Neuropsychiatric Disch Summary ---
Discharge Information Date of admission: 09/23/16 16:10 Attending Physician: Donovan Brown MD Primary care physician: Tono Nieves MD Consults: 09/23/16 17:29 Case Management Consult [CONS] Routine Reason For Exam: H&P medical mgmt Physician Consult [CONS] Routine Consulting Provider: Walter Jensen Reason For Exam: H&P medical mgmt Ordering Provider has Notified Legal Compliance Officer: No - Discharge Diagnosis Discharge Diagnosis: Major neurocognitive Disorder with behavioral Disturbance - Laboratory Labs: 09/30/16 05:14 09/30/16 05:14 Date of Admission: 09/23/16 16:10 History of Present Illness: HPI: 71 Y/O CM with a hx of Alzheimer's dementia sent from the medical floor where he was treated for a UTI. Pt was having some strange behaviors at home including poor sleep and some agitation. was concerned due to the confusion and wandering behaviors that he would not be safe. On face to face the pt is pleasant but confused. He is oriented x 2. Not sure of the location. His thoughts processes are slowed and he is a poor historian. He denies any S/I. PSYCH ROS: Pt reports his mood is stable. He denies feeling depressed. He does report issues with sleep for some time. He denies S/I or psychosis. reports a hx of Alzheimers but he has been fairly high functioning and continues to drive. PAST PSYCH: Denies Hospital Course This is a general summary of the patient's hospital course. For more details refer to the complete medical record. Hospital course: 09/24/16- Initial consult Impression Acute UTI Recent hyponatremia-resolved Dementia with behaviors Hypertension. BPH with chronic retention Plan Agree with admission to [facility] under the care of Dr. Brown for further psychiatric evaluation and treatment. Will continue with current antimicrobial coverage, Macrobid 100 milligrams twice a day for 4 additional days, and date 09/28/16. Hyponatremia appears to be resolved. Sodium today is 134. Will discontinue fluid restriction and periodically monitor sodium level. Continue on current regimen for Hypertension. Lopressor 12.5 milligrams daily, lisinopril 20 milligrams daily, Norvasc 7.5 milligrams daily. Continue with Lasix 20 milligrams daily for gentle diuresis. Continue with scheduled straight catheterization 4 times a day. Encourage patient to participate in unit activities and provide a safe environment. Will recheck a BMP on Wednesday 09/27 to monitor for further hyponatremia. Appreciate medical consultation. At time of discharge medical care will return to primary care provider, 09/24/16 16:48 Risperdal 0.25mg PO BID I have independently evaluated and examined this patient. I reviewed the chart, the patient's history, and the CHEMICAL PUMPER/PA's documented findings as above. We discussed and formulated the assessment and plan as above with additions as below: Mr. Hernandez was seen with his late this afternoon. The patient was talkative and pleasant. He denied pain or other acute symptoms including any current urinary difficulty other than chronic retention for which he straight catheters. He has been afebrile and denied dyspnea or pain. The patient was alert and cooperative although required some guidance to stay on track. Respirations nonlabored with clear breath sounds. Sensation intact to light touch 4 extremities. Motor tone normal, no tremors present. Blood pressure modestly elevated once this afternoon-will continue monitoring. Enterococcus best treated with either ampicillin/amoxicillin or vancomycin- review of culture indicate sensitivity to ampicillin and subsequently antibiotic has been converted to amoxicillin 3 times daily for anticipated five- day course. 09/25/16 18:08 Pt continues to have issues with sleep. Will start Trazodone 50mg PO QHS 09/26/16 19:08 Increase HS Risperdal to 0.5mg 09/27/16 UTI, acute. * Culture and sensitivity revealed Entercoccus Faecales sensitive to ampicillin , vancomycin and linezolid. Patient was initially started on Rocephin, then changed to Macrobid. Once sensitivity was available, patient was initiated on amoxicillin TID to be continued until 10/02. Continue to monitor closely for signs of further infection. High risk in light of self catheterizations. Will recheck CBC on 09/30 to monitor blood counts. Dementia, chronic. * Continue care per psychiatric team. Continue to provide safe and supportive environment and encourage floor activities. Sleeping improved with addition of trazodone at night. Hypertension, chronic. * Blood pressure noted to be elevated with systolic >150's during afternoon and evening hours. Will increase Norvasc from 7.5mg to 10mg daily and continue to monitor closely. Continue Lasix 20mg, metoprolol and lisinopril 20mg daily. Monitor for signs of hypotension and orthostasis. Will adjust diet to cardiac diet with 2g sodium restriction. Anemia, present on admission. * Hemoglobin was slightly low on admission at 13.4. Will monitor periodically throughout admission. Recheck CBC on 09/30 to monitor blood counts. Hyponatremia, RESOLVED. * BMP today showed sodium 134. Continue 2000mL fluid restriction and recheck BMP on 09/30 to monitor electrolytes and renal function. History of BPH with occasional self catheterizing, chronic. 09/27/16 18:01 Continues to have issues with sleep. Increase Trazodone to 100mg PO QHS 09/28/16 13:41 Pt improving. Sleeping better. Continue current care 09/29/16 17:07 Continues to have some issues with sleep. D/C Trazodone and Risperdal. Seroquel 50mg HS 09/30/16 18:13 PT continues to have issues with sleep and can be intrusive in the AM. Increase Seroquel to 75mg at HS 10/01/16 BP remains high - add Lisinopril 10 mg HS to his current regimen (which already includes Lisinopril 20 mg daily). Consider lifting sodium restriction - may need to discuss with family about risks and benefits vs. quality of life. Labs from 09/30/16 were stable. Tomorrow will be his last day of Amoxicllin for Enterococcus UTI. 10/01/16 20:42 Increase Seroquel to 100mg at HS 10/02/16 20:05 Plan D/C for tomorrow Time spent with patient: less than 15 minutes Discharge Plan - Med Rec/Dispo Referrals/Follow Up: [employer], Mental Health [Other] ([email or web address] does appt.'s by walk-in only. M-W 8-3:30pm, . 11-3:30 pm, and Fri. 8-2:30pm. At your first walk-in appt. ask specifically for Dr. Mauricio Brown. [facility] [address] [id number] ) Tono Nieves MD [Family Provider] - (Dr. Camilo Nieves on 10/21/16 at 10:00 am for Hosp. follow-up. Check in at 9:45 am. . Please have BMP at that time. [address] [place] [address]) [place] Instructions: Alzheimer Disease (GEN) Additional Instructions: Diagnosis: Major Neurocognitive Disorder with Behavioral Disturbance. Reasons for Admission: Increased confusion, wandering, poor judgement, and impulse control. IN CASE OF PSYCHIATRIC EMERGENCY, CONTACT GENERATIONS STAFF AT [phone] ( available 24 hrs daily). Prescriptions: New Escitalopram [Lexapro] 10 mg PO HS #30 tablet Quetiapine [Seroquel] 100 mg PO HS #30 tablet Acetaminophen [Tylenol] 500 mg PO Q4H PRN tablet PRN Reason: P Bisacodyl EC Tab [Dulcolax] 5 mg PO DAILY PRN tablet PRN Reason: Constipation Metoprolol Tartrate [Lopressor] 12.5 mg PO WB tablet Memantine Hcl/Donepezil Hcl [Namzaric 28 Mg-10 Mg Capsule] 1 cap PO QAM #30 Amlodipine [Norvasc] 10 mg PO DAILY tablet Lisinopril [Prinivil] 10 mg PO HS tablet Continue Lisinopril [Prinivil] 20 mg PO DAILY Metoprolol Tartrate [Lopressor] 12.5 mg PO WB tablet Silodosin [Rapaflo] 8 mg PO WS #0 Bisacodyl EC Tab [Dulcolax] 5 mg PO DAILY PRN PRN Reason: Constipation Ibuprofen [Advil] 200 mg PO Q4H PRN #10 PRN Reason: PAIN Discontinued Memantine HCl/Donepezil HCl [Namzaric 28 mg-10 mg Capsule] 1 cap PO QAM Nitrofurantoin Monohyd/M-Cryst [Macrobid 100 mg Capsule] 100 mg PO BID Melatonin 10 mg PO HS Furosemide [Lasix] 20 mg PO DAILY tablet Amlodipine Besylate 7.5 mg PO DAILY #0 Escitalopram [Lexapro] 10 mg PO HS Nitrofurantoin. [Macrobid] 100 mg PO BID #10 capsule No Action Acetaminophen 500 mg PO Q4H PRN #0 PRN Reason: PAIN Discharge Instructions/Outpatient Orders: Criteria for Antipsychotic Use Location: Determined By Patient Final Provider Discharge Instructions Location: Determined By Patient - Disposition 01 Discharged Home, Self-Care
== END 2016-10-03 10:22 | disposition home or self-care (01) | DRG 57 ==
LOC: GEN 16:10
PROVIDERS: ADMIT Psychiatry & Neurology Psychiatry; ATTEND Psychiatry & Neurology Psychiatry